=== PATIENT | male | born 1955 | race Caucasian/White ===

== ENCOUNTER 2020-04-03 03:10 | Emergency (ER) | payer BC, SELFPAY ==
--- NOTE | ~2020-04-03 | CT_ITS ---
EXAMINATION: CT abdomen pelvis w con EXAM DATE: 04/03/2020 04:32 INDICATION: Abdominal pain, flank pain. TECHNIQUE: Spiral CT of the abdomen and pelvis was performed following intravenous injection of 100 m L Omnipaque 350. Axial, coronal and sagittal images were reviewed. The dose-length product (DLP) fo r this examination was 940.26 mGy-cm. The exposure was tailored according to patient size (auto mA e xposure control), and iterative reconstruction (ASIR) was used as additional dose reduction technique . Comparison is made to prior examination from 05/12/2019. FINDINGS: The liver, spleen, adrenal glands and pancreas are unremarkable. Gallbladder is unremarkab le. No biliary obstruction. There are small renal cysts. There is mild to moderate bilateral hydrour eteronephrosis, with the bladder being severely distended, could be from bladder outlet obstruction o r neurogenic bladder. The prostate is enlarged measuring 5.4 x 5.3 cm, and bulging into the bladder b ase. There was mild hydronephrosis on the previous examination. There is a nonobstructing left calyce al 1.2 cm stone, and several punctate right calyceal stones. No ureteral stones or bladder stones. T here is no retroperitoneal or pelvic lymphadenopathy. There is mild scattered arteriosclerotic dise ase. Small umbilical fat-containing hernia. There is moderate descending and sigmoid colonic colonic diverticulosis. There is no adjacent inflam matory change to suggest diverticulitis. The appendix is normal. The stomach and small bowel are unr emarkable. There is expected amount of colonic stool. No free intraperitoneal gas. The heart is normal in size. There are no pericardial or pleural effusions. Scattered basilar postinfectious res idua and mediastinal granulomas. There are no osteoblastic or osteolytic lesions identified. IMPRESSION: 1. Mild to moderate bilateral hydroureteronephrosis and severely distended bladder could indicate bl adder outlet obstruction from BPH, or sequela from neurogenic bladder. Moderate prostatomegaly. 2. Bilateral nephrolithiasis. 3. Colonic diverticulosis. 4. Small umbilical hernia. Reviewed, dictated and finalized at location A. IMPRESSION: 1. Mild to moderate bilateral hydroureteronephrosis and severely distended nory dder could indicate bladder outlet obstruction from BPH, or sequela from neurog enic bladder. Moderate prostatomegaly. 2. Bilateral nephrolithiasis. 3. Colonic diverticulosis. 4. Small umbilical hernia.
[2020-04-03 03:13] VITALS: BP 187/114; PULSE 100; RESP 20; TEMP 36.9; O2SAT 97
--- NOTE | 2020-04-03 03:31 | ED.ABDPAIN ---
HPI - Abdominal Pain General Chief Complaint: Abdominal Pain Stated Complaint: FLANK PAIN Time Seen by Provider: 04/03/20 03:13 Source: RN notes reviewed History of Present Illness HPI narrative: Patient presents emergency department from home for flank pain. Patient states symptoms began approximately 8 PM today. The pain is located in the right lower abdomen and radiates in the right flank described as sharp and stabbing. States he took Excedrin at home with no relief. Denies any fevers or chills chest pain, shortness of breath nausea vomiting diarrhea or any other symptoms of concern Related Data Allergies Allergy/AdvReac Type Severity Reaction Status Date / Time No Known Allergies Allergy Verified 04/03/20 03:16 Review of Systems Review of Systems: Narrative: Gen.: Denies fevers or chills Eyes: Denies eye pain or visual change ENT: Denies congestion Respiratory: Denies shortness of breath or cough CV: Denies chest pain or palpitations GI: See HPI denies burning, urgency, frequency or hematuria Musculoskeletal: Denies back pain or muscle pain Neuro: Denies numbness, tingling, weakness or focal weakness Skin: Denies rash Except as documented, all other systems reviewed and negative [facility] Past Medical History Medical History (Updated 04/03/20 @ 05:31 by Markus Hinton DO) GERD (gastroesophageal reflux disease) Kidney stone Family History Family History (Updated 04/29/14 @ 07:13 by DOCTOR UNKNOWN) Sibling Hypertension Mother Family history of Parkinson's disease Family history of dementia Social History Social History Smoking status: Never smoker Alcohol intake: never Exam Narrative: Exam Narrative: APPEARANCE: No acute distress, nontoxic, resting in bed HEENT: Normocephalic, atraumatic, OMM RESPIRATORY: No respiratory distress, clear to auscultation bilaterally with no rhonchi wheezing or rales CARDIOVASCULAR: RRR s murmur ABDOMINAL: Soft, nondistended, tender palpation right lower quadrant right upper quadrant, no tenderness left upper quadrant left lower quadrant, no rebound or guarding, right flank tenderness MUSCULOSKELETAl: Moves all extremities. No clubbing, cyanosis or edema. NEURO: Awake and alert. Following commands, speech normal, no focal deficits SKIN:: Warm, dry. Normal Color PSYCHIATRIC: Normal affect/mood Course Course Emergency Course: Following CT patient noted to have distended bladder. When discussed with patient. He states he was having only some minimal urination states he saw Dr. Solorio 2 years ago and had prostate biopsies but has not seen since that time that time a Tejada was placed and was clamped after initial thousand liters out. Patient with total of 1300 mL out abdominal pain resolved Called and discussed with Dr. Velazquez presentation work-up agrees with plan for discharge with [place] and follow-up as an outpatient Discussed with patient results of workup and diagnosis. Discussed need for follow-up with primary care, proper use of medication, and reasons to return to the emergency department. Patient understands and agrees to current treatment plan Vital Signs Vital signs: Vital Signs Temperature 98.4 F 04/03/20 03:13 Pulse Rate 100 04/03/20 03:13 Respiratory Rate 20 04/03/20 03:13 Blood Pressure 187/114 H 04/03/20 03:13 Pulse Oximetry 97 04/03/20 03:13 Temperature 98.4 F 04/03/20 03:13 Pulse Rate 100 04/03/20 03:13 Respiratory Rate 20 04/03/20 03:13 Blood Pressure 187/114 H 04/03/20 03:13 Pulse Oximetry 97 04/03/20 03:13 MDM - Abdominal Pain MDM Narrative Medical decision making narrative: Patient initially presented with symptoms consistent with kidney stone lower abdominal pain radiating to the flank had blood in urine. Initially given fluids morphine and CT obtained CT shows distended bladder Tejada placed with improvement of pain and pain occurring from nory
[2020-04-03] MEDS: ONDANSETRON INJ 4 MG/2 ML VIAL IV PUSH (03:34)
[2020-04-03] MEDS: MORPHINE SULFATE 4 MG/ML INJ IV PUSH (03:34)
[2020-04-03] MEDS: SODIUM CHLORIDE 0.9% IV 1,000 ML 999 ML IV CONT (03:34)
[2020-04-03 03:43] LABS: Basophils Absolute Auto 0.1 K/mm3 (0.0-0.1); Basophils Percent Auto 0.4 % (0.2-1.2); Eosinophils Absolute Auto 0.1 K/mm3 (0-0.3); Eosinophils Percent Auto 0.4 % (0-4.4); Hematocrit 48.5 % (42.0-52.0); Hemoglobin 16.6 g/dL (14.0-18.0); Immature Granulocyte Absolute 0.07 K/mm3 (0.00-0.031); Immature Granulocyte Percent A 0.5 % (0-0.5); Lymphocytes Absolute Auto 1.29 K/mm3 (0.9-3.2); Lymphocytes Percent Auto 9.2 % (18.3-44.2); Mean Corpuscular HGB Conc 34.2 g/dl (32-36); Mean Corpuscular Volume 93.4 fl (80-100); Mean Platelet Volume 9.1 fl (7.4-10.4); Monocytes Absolute Auto 1.1 K/mm3 (0.1-0.6); Monocytes Percent Auto 7.9 % (2.6-8.5); Neutrophils Absolute Auto 11.4 K/mm3 (1.3-6.7); Neutrophils Percent Auto 81.6 % (45.5-73.1); Platelet Count Result 266 k/mm3 (150-375); Red Blood Count 5.19 M/mm3 (4.6-6.20); Red Cell Distribution Width 13.3 % (11.5-14.5)
[2020-04-03 03:50] LABS: Add Urine Microscopic? YES; Appearance Urine Clear (Clear); Bilirubin Urine Negative (Negative); Blood Urine 2+ (Negative); Color Urine Straw (Yellow); Glucose Urine UA Negative (Negative); Ketones Urine Negative (Negative); Leukocyte Esterase Ur Negative LEU/UL (Negative); Mucus Urine Rare /lpf; Nitrate Urine Negative (Negative); Protein Urine Negative (Negative); RBC Urine 21-50 /hpf (0-2); Specific Grav Ur 1.009 (1.001-1.035); Urobilinogen Urine Negative mg/dL (<2.0)
[2020-04-03 03:56] LABS: Alanine Aminotransferase 33 U/L (4-50); Albumin Level 4.7 g/dL (3.5-5.1); Alkaline Phosphatase 80 U/L (38-126); Anion Gap 14.8 mmol/L (7-16); Aspartate Amino Transferase 39 U/L (17-59); Bilirubin,Total 0.4 mg/dL (0.2-1.3); Blood Urea Nitrogen 19 mg/dL (9-20); Calcium 9.4 mg/dL (8.4-10.2); Carbon Dioxide 26 mmol/L (22-30); Chloride 102 mmol/L (98-107); Estimated CRCL calculation 50 ml/min; Estimated Glomerular Filt Rate 47; Glucose 126 mg/dL (75-110); Lipase 64 U/L (23-300); Potassium 4.8 mmol/L (3.4-5.0); Sodium 138 mmol/L (137-145)
--- NOTE | 2020-04-03 05:06 | PC.NURSE ---
pt reports relief of pain at this time
[2020-04-03] MEDS: TAMSULOSIN HCL 0.4 MG CAPSULE PO (05:08)
[2020-04-03 06:02] VITALS: BP 151/80; PULSE 84; RESP 16; O2SAT 94
== END 2020-04-03 06:04 | disposition home or self-care (01) ==
PROVIDERS: Emergency Provider Emergency Medicine; PCP Family Medicine
DX: R33.9 Retention of urine, unspecified (principal); N28.9 Disorder of kidney and ureter, unspecified; K21.9 Gastro-esophageal reflux disease without esophagitis; Z87.442 Personal history of urinary calculi; N20.0 Calculus of kidney; K57.90 Diverticulosis of intestine, part unspecified, without perforation or abscess without bleeding; K42.9 Umbilical hernia without obstruction or gangrene
CPT/HCPCS: 36415; 51702; 74177; 80053; 81001; 83690; 85025; 96361; 96374; 96375; 99284; A9270; J2270; J2405; J7030; Q9967

== ENCOUNTER → 2020-12-06 13:30 | Outpatient (REF) | payer BC, SELFPAY | LOC: ANHLAB 13:30 | PROVIDERS: PCP Family Medicine; Visit Provider Nurse Practitioner | DX: D18.01 Hemangioma of skin and subcutaneous tissue (principal) | CPT/HCPCS: 88305 ==

== ENCOUNTER → 2021-01-19 12:06 | Outpatient (REF) | payer BC, SELFPAY | LOC: ANHLAB 12:06 | PROVIDERS: PCP Family Medicine; Visit Provider Nurse Practitioner | DX: L98.0 Pyogenic granuloma (principal) | CPT/HCPCS: 88305 ==

== ENCOUNTER 2021-09-23 11:42 | Inpatient (IN) | payer MEDICARE, SELFPAY ==
[2021-09-23] VITALS (10 sets, daily range): BP systolic 92–160; BP diastolic 56–100; PULSE 71–90; RESP 12–18; TEMP 36.4–37; O2SAT 90–99; BMI 34.5
--- NOTE | ~2021-09-23 | XR_ITS ---
XR abdomen/kub 1V DATE: 09/23/2021 13:14 INDICATION: Left Ureteral calculus TECHNIQUE: AP projection, 2 views COMPARISON: 09/23/2021 CT abdomen pelvis FINDINGS: Approximately 10 x 16 mm calcified calculus overlies the proximal left ureter at the L4 lev el. Associated as are intact. There is left nephromegaly. There is no evidence of bowel obstruction. Ther e is a moderately prominent of fecal material in the rectum and colon. IMPRESSION: Approximately 10 x 16 mm calcified left ureteral calculus at L4 level Reviewed, dictated and finalized at [facility]. Reviewed, dictated and finalized at location A. SHIFTER IMPRESSION: Approximately 10 x 16 mm calcified left ureteral calculus at L4 lev el
--- NOTE | ~2021-09-23 | XR_ITS ---
EXAMINATION: XR retrograde pyelo w/stent LT INDICATION: Left flank pain TECHNIQUE: Four intraoperative fluoroscopic images are submitted for review. Total fluoroscopic time was 106.5 seconds. COMPARISON: KUB from today FINDINGS: Fluoroscopic images demonstrate placement of a left internal ureteral stent in expected pos ition. A stone is noted in the proximal ureter adjacent to the internal ureteral stent. IMPRESSION: 1. Left internal ureteral stent in expected position with stone adjacent to the stent in the proximal ureter. Please refer to procedure note for full details. Reviewed, dictated and finalized at location F. COOK
--- NOTE | ~2021-09-23 | CT_ITS ---
EXAMINATION: CT abdomen pelvis wo con DATE: 09/23/2021 12:56 INDICATION: Left-sided abdominal pain. Kidney stone. TECHNIQUE: Computed tomography (CT) of the abdomen and pelvis was performed without intravenous contr ast. Automated exposure control and iterative reconstruction technique were employed. Exam dose: 873 .00 mGy-cm total exam DLP. COMPARISON: None. FINDINGS: Several stable hepatic cysts since 04/03/2020. The gallbladder is present. No bile duct dilatation. Nor mal splenic size with occasional calcified splenic granulomas. No pancreatic mass lesion, calcificati on or pancreatic duct dilatation. Normal morphology of the adrenal glands. Right renal cysts measuring up to 2.5 cm, demonstrated to better advantage on 04/03/2020 examination wi th IV contrast material. 10 by 13 mm calculus with attenuation of 1007 Hounsfield units is noted at the proximal left ureter. There is prominent left hydronephrosis, mild perinephric stranding, nephromegaly. There is mild to moderate right hydronephrosis. No right urinary tract calculus is evident. There is prominent prostate enlargement, impressing the base of bladder, as well as prostate calcific ations. There is moderate diffuse bladder wall thickening. There are numerous diverticula of the sigmoid and descending colon and splenic flexure and some invol vement of the transverse colon; no CT evidence of diverticulitis. Normal appendix. No bowel obstruction, bowel wall thickening, pneumatosis or intraperitoneal free air. 2.3 x 2.5 cm fat-containing umbilical hernia. Small bilateral fat-containing inguinal hernias. No suspicious osteolytic or osteoblastic lesions are noted. IMPRESSION: 10 x 13 mm obstructing calculus at the proximal left ureter with prominent left hydroure teronephrosis, mild perinephric stranding, nephromegaly Right renal cysts Occasional hepatic cysts Diverticulosis of colon; no CT evidence of diverticulitis Reviewed, dictated and finalized at [facility]. Reviewed, dictated and finalized at location A. R IMPRESSION: 10 x 13 mm obstructing calculus at the proximal left ureter with p rominent left hydroureteronephrosis, mild perinephric stranding, nephromegaly Right renal cysts Occasional hepatic cysts Diverticulosis of colon; no CT evidence of diverticulitis
--- NOTE | 2021-09-23 12:15 | ED.MALEGU ---
HPI - Male Genitourinary General Chief complaint: Urogenital-Male Stated complaint: left flank pain Time Seen by Provider: 09/23/21 12:02 Source: RN notes reviewed History of Present Illness HPI Narrative: Patient presents emergency department from home for left flank pain. Patient symptoms been ongoing for the past 5 days pain is located left flank does not radiate described as aching in nature and comes in waves states pain does radiate to the left side of the abdomen he denies any fevers or chills chest pain shortness of breath nausea vomiting diarrhea or any other symptoms states he not taking medication at home for this. States he does have a history of kidney stones followed by Dr. Solorio Related Data Home Medications Medication Instructions Recorded Confirmed No Home Medications 09/23/21 09/23/21 Allergies Allergy/AdvReac Type Severity Reaction Status Date / Time No Known Allergies Allergy Verified 09/23/21 12:01 Review of Systems Review of Systems: Gen.: Denies fevers or chills ENT: Denies congestion Respiratory: Denies shortness of breath or cough CV: Denies chest pain or palpitations GI: See HPI denies nausea, emesis or diarrhea denies burning, urgency, frequency or hematuria Musculoskeletal: Denies back pain or muscle pain Neuro: Denies numbness, tingling, weakness or focal weakness Skin: Denies rash Except as documented, all other systems reviewed and negative [facility] Past Medical History Medical History (Updated 09/23/21 @ 15:38 by Markus Hinton DO) GERD (gastroesophageal reflux disease) Kidney stone Obesity Surgical History Surgical History Colonoscopy planned Dilation of esophagus 3 times Family History Family History Sibling Hypertension Mother Family history of Parkinson's disease Family history of dementia Father History of melanoma Social History Social History Smoking status: Never smoker Second hand tobacco smoke exposure: No Alcohol intake: current Drinks per week: 2 Alcohol use details: beer Substance use: never Substance use type: does not use Additional occupation/education comments: [employer] Gender identity (if verbalized by the patient): Male Spiritual care concerns: No Agree to blood products: Yes Exam Narrative: APPEARANCE: No acute distress, nontoxic, resting in bed EYES: EOMI HEENT: Normocephalic, atraumatic, OMM RESPIRATORY: No respiratory distress Clear to auscultation bilaterally with no rhonchi wheezing or rales. CARDIOVASCULAR: Regular rate and rhythm without murmurs rubs or gallops. ABDOMINAL: Soft, nontender, nondistended, no rebound or guarding left flank tenderness MUSCULOSKELETAl: Moves all extremities. No clubbing, cyanosis or edema. NEURO: Awake and alert. Following commands, speech normal, no focal deficits SKIN:: Warm, dry. No rashes lesions or abrasions PSYCHIATRIC: Normal affect/mood, Course Course Emergency Course: Reviewed patient's old records patient has been having symptoms of COVID since 09 September he has not been tested yet had talked with his PCP was exposed to COVID-positive will test Discussed with Dr. Taylor for urology request patient be n.p.o. for possible OR today agrees with plan for antibiotics Discussed with RODRICK Pedroza for Dr. Schulz presentation work-up agrees with admission Discussed with patient and family results of workup and diagnosis. Discussed need for admission. Patient and family understand and agree to current treatment plan Vital Signs Vital signs: Vital Signs Temperature 97.6 F 09/23/21 11:49 Pulse Rate 90 09/23/21 11:49 Respiratory Rate 16 09/23/21 11:49 Blood Pressure 128/98 H 09/23/21 11:49 Pulse Oximetry 99 09/23/21 11:49 Temperature 97.6 F 09/23/21 11:49 Pulse Rate 78
[2021-09-23] MEDS: KETOROLAC 30 MG/ML VIAL (*BKC) IV PUSH (12:18)
[2021-09-23] MEDS: SODIUM CHLORIDE 0.9% IV 1,000 ML 999 ML IV CONT (12:18)
[2021-09-23 12:21] LABS: Basophils Percent Auto 0.1 % (0.2-1.2); Eosinophils Absolute Auto 0.1 K/mm3 (0-0.3); Hematocrit 43.4 % (42.0-52.0); Hemoglobin 14.7 g/dL (14.0-18.0); Immature Granulocyte Absolute 0.03 K/mm3 (0.00-0.031); Immature Granulocyte Percent A 0.4 % (0-0.5); Lymphocytes Absolute Auto 1.12 K/mm3 (0.9-3.2); Mean Corpuscular HGB Conc 33.9 g/dl (32-36); Mean Corpuscular Hemoglobin 31.8 pg (26-34); Mean Corpuscular Volume 93.9 fl (80-100); Mean Platelet Volume 8.5 fl (7.4-10.4); Monocytes Absolute Auto 0.6 K/mm3 (0.1-0.6); Monocytes Percent Auto 8.9 % (2.6-8.5); Neutrophils Absolute Auto 5.2 K/mm3 (1.3-6.7); Neutrophils Percent Auto 73.6 % (45.5-73.1); Platelet Count Result 242 k/mm3 (150-375); Red Blood Count 4.62 M/mm3 (4.6-6.20); Red Cell Distribution Width 13.2 % (11.5-14.5)
[2021-09-23 12:31] LABS: Add Urine Microscopic? YES; Appearance Urine Clear (Clear); Bilirubin Urine Negative (Negative); Blood Urine 2+ (Negative); Color Urine Yellow (Yellow); Glucose Urine UA Negative (Negative); Ketones Urine Negative (Negative); Leukocyte Esterase Ur Trace LEU/UL (Negative); Mucus Urine Rare /lpf; Nitrate Urine Negative (Negative); Protein Urine Negative (Negative); RBC Urine 21-50 /hpf (0-2); WBC Urine 21-30 /hpf
[2021-09-23 12:35] LABS: Alanine Aminotransferase 60 U/L (4-50); Albumin Level 3.8 g/dL (3.5-5.1); Alkaline Phosphatase 64 U/L (38-126); Anion Gap 6 mmol/L (8-16); Aspartate Amino Transferase 64 U/L (17-59); Bilirubin,Total 0.6 mg/dL (0.2-1.3); Blood Urea Nitrogen 23 mg/dL (9-20); Calcium 8.5 mg/dL (8.4-10.2); Carbon Dioxide 29 mmol/L (22-30); Chloride 104 mmol/L (98-107); Estimated CRCL calculation 42 ml/min; Estimated Glomerular Filt Rate 38; Glucose 127 mg/dL (65-110); Potassium 3.7 mmol/L (3.4-5.0); Sodium 139 mmol/L (137-145)
[2021-09-23 14:34] LABS: SARS-CoV-2 RNA PCR Positive
--- NOTE | 2021-09-23 14:45 | PM.IMHP ---
H&P: HPI History of Present Illness Date/Time: 09/23/21 14:45 Chief Complaint: Left flank pain. Narrative: This is a pleasant 66-year-old male with history of kidney stones and benign prostatic hyperplasia presented to the emergency department earlier today from home for evaluation of left flank pain. He has not felt well for about 10 days and initially developed symptoms of low-grade fever, nonproductive cough, headache, and nausea on 09/09/2021. His son tested positive for COVID the patient assumed he had the same. Given mild symptoms he did not seek treatment however this past Saturday he developed aching and stabbing pain in the left mid to low back and flank region. He spoke with his primary care provider on 09/18/2021 who ordered an x-ray however he thought that it was likely related to cough or may be even a strained muscle from work thus he has not yet had that done. These past several days he has had increasing pain which sounds to be colicky in nature and today is insisted that he come in for evaluation. CT of the abdomen and pelvis showed a 10 x 13 mm proximal left ureteral stone with prominent hydronephrosis and he is currently awaiting transport to OR for cystoscopy and stent placement. He denies fever, sore throat, chest pain, shortness of breath, vomiting, diarrhea, dysuria, and hematuria. He was not vaccinated against COVID. Review of Systems Review of Systems: Twelve systems were reviewed and are negative except for as per HPI. [facility] Past Medical History Medical History (Updated 09/23/21 @ 20:37 by Kasia De La Garza PA-C) Benign prostatic hyperplasia Chronic kidney disease, stage 3 Elevated PSA Followed by Dr. Solorio. Gastroesophageal reflux disease Kidney stone Surgical History Surgical History (Updated 09/23/21 @ 20:32 by Kasia De La Garza PA-C) History of esophageal dilatation x3 History of prostate biopsy Benign pathology. Family History Family History Sibling Hypertension Mother Family history of Parkinson's disease Family history of dementia Father History of melanoma Social History Social History (Updated 09/23/21 @ 20:33 by Kasia De La Garza PA-C) Social History: Surrogate decision maker: Melody Chandra, spouse. Code status: Full code. Smoking status: Never smoker Second hand tobacco smoke exposure: No Alcohol intake: current Drinks per week: 2 Alcohol use details: beer Substance use: never Substance use type: does not use Additional living arrangements comments: The patient lives in [place] with his . Additional occupation/education comments: [employer]. Meds Home Medications and Allergies Home Medications Medication Instructions Recorded Confirmed Type fluticasone propionate 50 mcg INTRANASAL DAILY 09/23/21 09/23/21 History tamsulosin 0.4 mg PO HS 09/23/21 09/23/21 History Allergies Allergy/AdvReac Type Severity Reaction Status Date / Time No Known Allergies Allergy Verified 09/23/21 12:01 Vital Signs Vital Signs - 24 hr 09/23/21 11:49 09/23/21 13:51 09/23/21 16:31 Temperature 97.6 F 97.7 F Pulse Rate 90 78 84 Respiratory Rate 16 18 12 Blood Pressure 128/98 H 144/100 H 92/56 L Pulse Oximetry 99 97 90 09/23/21 16:41 09/23/21 16:55 09/23/21 17:10 Temperature Pulse Rate 85 77 75 Respiratory Rate 16 16 16 Blood Pressure 102/63 112/69 138/86 Pulse Oximetry 92 94 93 09/23/21 17:25 09/23/21 17:40 Temperature Pulse Rate 71 72 Respiratory Rate 16 16 Blood Pressure 142/93 H 158/93 H Pulse Oximetry 96 95 Exam Narrative: General: Well-developed, nontoxic-appearing male sitting up in bed. Weight: 100 kg. BMI: 34.5. HEENT: PERRL, EOMI. Sclerae anicteric. Oral mucosa moist. Neck: Supple. Respiratory: Lungs are clear to auscultation bilaterally. Cardiovascular: Regular rate and rhythm with S1-S2. No murmur, rub, or gallop. Gastrointe
--- NOTE | 2021-09-23 14:46 | WPDANESEPP ---
Anes - Eval Pre Procedure Procedure: Operation Date: 09/23/21 15:30 Proposed Procedures p Cysto, RPG, Stone Ext, Stent Placement - Harinder Taylor MD Date/Time: 09/23/21 14:46 Surgeon: Balaji Preop Diagnosis: Left Ureteral Stone Pre Op Diagnosis: left flank pain Patient Data Age: 66 Gender: M Height: 1.7 m Weight: 100 kg Last Vital Signs Temp 97.6 F 09/23/21 11:49 Pulse 78 09/23/21 13:51 Resp 18 09/23/21 13:51 BP 144/100 H 09/23/21 13:51 Pulse Ox 97 09/23/21 13:51 Allergies Allergy/AdvReac Type Severity Reaction Status Date / Time No Known Allergies Allergy Verified 09/23/21 12:01 Home Medications Medication Instructions Recorded Confirmed Type No Home Medications 09/23/21 09/23/21 History Laboratory Tests 09/23/21 09/23/21 09/23/21 12:04 12:04 12:11 WBC 7.0 K/mm3 K/mm3 (4.5-10.0) RBC 4.62 M/mm3 M/mm3 (4.6-6.20) Hgb 14.7 g/dL g/dL (14.0-18.0) Hct 43.4 % % (42.0-52.0) MCV 93.9 fl fl (80-100) MCH 31.8 pg pg (26-34) MCHC 33.9 g/dl g/dl (32-36) RDW 13.2 % % (11.5-14.5) Plt Count 242 k/mm3 k/mm3 (150-375) MPV 8.5 fl fl (7.4-10.4) Immature Gran % (Auto) 0.4 % % (0-0.5) Neut % (Auto) 73.6 % H % (45.5-73.1) Lymph % (Auto) 16.0 % L % (18.3-44.2) Ware % (Auto) 8.9 % H % (2.6-8.5) Eos % (Auto) 1.0 % % (0-4.4) Baso % (Auto) 0.1 % L % (0.2-1.2) Lymph # (Auto) 1.12 K/mm3 K/mm3 (0.9-3.2) Ware # (Auto) 0.6 K/mm3 K/mm3 (0.1-0.6) Eos # (Auto) 0.1 K/mm3 K/mm3 (0-0.3) Baso # (Auto) 0.0 K/mm3 K/mm3 (0.0-0.1) Abs Immat Gran (auto) 0.03 K/mm3 K/mm3 (0.00-0.031) Absolute Neuts (auto) 5.2 K/mm3 K/mm3 (1.3-6.7) Absolute Nucleated RBC 0.0 K/mm3 K/mm3 (0.0-0.012) Nucleated RBC % 0.0 % % (0.0-0.2) Sodium 139 mmol/L mmol/L (137-145) Potassium 3.7 mmol/L mmol/L (3.4-5.0) Chloride 104 mmol/L mmol/L (98-107) Carbon Dioxide 29 mmol/L mmol/L (22-30) Anion Gap 6 mmol/L L mmol/L (8-16) BUN 23 mg/dL H mg/dL (9-20) Creatinine 1.80 mg/dL H mg/dL (0.7-1.3) Estim Creat Clear Calc 42 ml/min ml/min Estimated GFR 38 L (59 - ) Glucose 127 mg/dL H mg/dL (65-110) Calcium 8.5 mg/dL mg/dL (8.4-10.2) Total Bilirubin 0.6 mg/dL mg/dL (0.2-1.3) AST 64 U/L H U/L (17-59) ALT 60 U/L H U/L (4-50) Alkaline Phosphatase 64 U/L U/L (38-126) Total Protein 7.0 g/dL g/dL (6.3-8.2) Albumin 3.8 g/dL g/dL (3.5-5.1) Urine Color Yellow (Yellow) Urine Appearance Clear (Clear) Urine pH 6.0 (5.0-9.0) Ur Specific [place] 1.020 (1.001-1.035) Urine Protein Negative mg/dL mg/dL (Negative) Urine Glucose (UA) Negative mg/dL mg/dL (Negative) Urine Ketones Negative mg/dL mg/dL (Negative) Ur Blood (Man) 2+ H (Negative) Urine Nitrate Negative (Negative) Urine Bilirubin Negative (Negative) Urine Urobilinogen 2.0 mg/dL H mg/dL (<2.0) Leukocyte Esterase Rfl Trace VIVIANE/UL H VIVIANE/UL (Negative) Urine RBC 21-50 /hpf H /hpf (0-2) Urine WBC 21-30 /hpf H /hpf Urine Mucus Rare /lpf /lpf SARS-CoV-2 RNA (RT-PCR) 09/23/21 13:50 WBC RBC Hgb Hct MCV MCH MCHC RDW Plt Count MPV Immature Gran % (Auto) Neut % (Auto) Lymph % (Auto) Ware % (Auto) Eos % (Auto) Baso % (Auto) Lymph # (Auto) Ware # (Auto) Eos # (Auto) Baso # (Auto) Abs Immat Gran (auto) Absolute Neut
--- NOTE | 2021-09-23 15:00 | PC.NURSE ---
Patient and informed that patient is not able to have any visitors due to patient COVID pending test. not willing to leave room and educated on the protocols of the ED due to COVID.
--- NOTE | 2021-09-23 15:06 | WPDANESEPPF ---
Anes - Initial Pre Proc Eval Procedure: Operation Date: 09/23/21 15:30 Proposed Procedures p Cysto, RPG, Stone Ext, Stent Placement - Harinder Taylor MD Date/Time: 09/23/21 15:06 Pre Op Diagnosis: left flank pain Patient Data Age: 66 Gender: M Height: 1.7 m Weight: 100 kg Last Vital Signs Temp 36.4 C 09/23/21 11:49 Pulse 78 09/23/21 13:51 Resp 18 09/23/21 13:51 BP 144/100 H 09/23/21 13:51 Pulse Ox 97 09/23/21 13:51 Allergies Allergy/AdvReac Type Severity Reaction Status Date / Time No Known Allergies Allergy Verified 09/23/21 12:01 Home Medications Medication Instructions Recorded Confirmed Type No Home Medications 09/23/21 09/23/21 History Laboratory Tests 09/23/21 09/23/21 09/23/21 12:04 12:04 12:11 WBC 7.0 K/mm3 K/mm3 (4.5-10.0) RBC 4.62 M/mm3 M/mm3 (4.6-6.20) Hgb 14.7 g/dL g/dL (14.0-18.0) Hct 43.4 % % (42.0-52.0) MCV 93.9 fl fl (80-100) MCH 31.8 pg pg (26-34) MCHC 33.9 g/dl g/dl (32-36) RDW 13.2 % % (11.5-14.5) Plt Count 242 k/mm3 k/mm3 (150-375) MPV 8.5 fl fl (7.4-10.4) Immature Gran % (Auto) 0.4 % % (0-0.5) Neut % (Auto) 73.6 % H % (45.5-73.1) Lymph % (Auto) 16.0 % L % (18.3-44.2) Angelina % (Auto) 8.9 % H % (2.6-8.5) Eos % (Auto) 1.0 % % (0-4.4) Baso % (Auto) 0.1 % L % (0.2-1.2) Lymph # (Auto) 1.12 K/mm3 K/mm3 (0.9-3.2) Angelina # (Auto) 0.6 K/mm3 K/mm3 (0.1-0.6) Eos # (Auto) 0.1 K/mm3 K/mm3 (0-0.3) Baso # (Auto) 0.0 K/mm3 K/mm3 (0.0-0.1) Abs Immat Gran (auto) 0.03 K/mm3 K/mm3 (0.00-0.031) Absolute Neuts (auto) 5.2 K/mm3 K/mm3 (1.3-6.7) Absolute Nucleated RBC 0.0 K/mm3 K/mm3 (0.0-0.012) Nucleated RBC % 0.0 % % (0.0-0.2) Sodium 139 mmol/L mmol/L (137-145) Potassium 3.7 mmol/L mmol/L (3.4-5.0) Chloride 104 mmol/L mmol/L (98-107) Carbon Dioxide 29 mmol/L mmol/L (22-30) Anion Gap 6 mmol/L L mmol/L (8-16) BUN 23 mg/dL H mg/dL (9-20) Creatinine 1.80 mg/dL H mg/dL (0.7-1.3) Estim Creat Clear Calc 42 ml/min ml/min Estimated GFR 38 L (59 - ) Glucose 127 mg/dL H mg/dL (65-110) Calcium 8.5 mg/dL mg/dL (8.4-10.2) Total Bilirubin 0.6 mg/dL mg/dL (0.2-1.3) AST 64 U/L H U/L (17-59) ALT 60 U/L H U/L (4-50) Alkaline Phosphatase 64 U/L U/L (38-126) Total Protein 7.0 g/dL g/dL (6.3-8.2) Albumin 3.8 g/dL g/dL (3.5-5.1) Urine Color Yellow (Yellow) Urine Appearance Clear (Clear) Urine pH 6.0 (5.0-9.0) Ur Specific [place] 1.020 (1.001-1.035) Urine Protein Negative mg/dL mg/dL (Negative) Urine Glucose (UA) Negative mg/dL mg/dL (Negative) Urine Ketones Negative mg/dL mg/dL (Negative) Ur Blood (Man) 2+ H (Negative) Urine Nitrate Negative (Negative) Urine Bilirubin Negative (Negative) Urine Urobilinogen 2.0 mg/dL H mg/dL (<2.0) Leukocyte Esterase Rfl Trace VIVIANE/UL H VIVIANE/UL (Negative) Urine RBC 21-50 /hpf H /hpf (0-2) Urine WBC 21-30 /hpf H /hpf Urine Mucus Rare /lpf /lpf SARS-CoV-2 RNA (RT-PCR) 09/23/21 13:50 WBC RBC Hgb Hct MCV MCH MCHC RDW Plt Count MPV Immature Gran % (Auto) Neut % (Auto) Lymph % (Auto) Angelina % (Auto) Eos % (Auto) Baso % (Auto) Lymph # (Auto) [place]ina # (Auto) Eos # (Auto) Baso # (Auto) Abs Immat Gran (auto) Absolute Neuts (auto) Absolute Nucleated RBC Nucle
--- NOTE | 2021-09-23 15:20 | WPDHPUPDATE1 ---
History and Physical Update Update Date/Time: 09/23/21 15:20 History and Physical has been reviewed, including an updated exam of the patient. There are NO changes in the patient's condition. Risks, benefits, and alternatives have been discussed and questions answered. Patient agrees to proceed with procedure.
--- NOTE | 2021-09-23 15:20 | WPDURCON ---
Assessment and Plan Assessment and plan (1) COVID-19 determined by clinical diagnostic criteria: Code(s): U07.1 - COVID-19 Status: Acute Assessment and Plan: management per hospitalist (2) Ureteral stone: Code(s): N20.1 - Calculus of ureter Status: Acute Assessment and Plan: 10x13 mm obstructing stone plan for cysto RPG, stent placement -we discussed risk of PCN by IR if unable to place stent he understands the risks, benefits, alternatives, nature of procedure and possible complications -risks including but not limited to bleeding, infection, trauma to prostate or ureter/bladder, the irritative nature of stent were reviewed, need for future stone treatment, anesthesia and positioning risks of ID, stroke , DVT, PE disability ( prolonged MV given covid + Status) -he and family verbalized understanding, all ? answered -he will f/u with Dr Solorio for ESWL after UTI treated (3) UTI (urinary tract infection): Code(s): N39.0 - Urinary tract infection, site not specified Status: Acute Assessment and Plan: on rocephin -continue abx, await cultures (4) Hydronephrosis: Code(s): N13.30 - Unspecified hydronephrosis Status: Acute Assessment and Plan: likely due to stone Urology Consult Note HPI Date Seen: 09/23/21 Primary Care Provider: Raven Ballesteros, DO Consult Narrative Narrative: Grzegorz Chandra is a 66 year old male with hx of BPH, GERD ( pt of Dr Solorio), with a known hx of renal stone , who presented to ER with a 4-5 day history of progressive left sided colicky pain. He was doing well yesterday and this am, and had a strong episode of colicky pain. he denies hematuria, dysuria, fevers/chills. + Nausea, denies vomiting. No prior hx of stones. He was waiting to treat stone until after harvest. Pain was waxing and waning, now controlled with IV morphine. + for covid, asymptomatic. he thought his symptoms were due to rojas dust exposure Review of Systems Constitutional: Constitutional: Reports as per HPI, Denies body ache(s) and Denies chills Eyes: Eyes: Reports as per HPI ENT: Reports as per HPI Cardiovascular: Cardiovascular: Denies dyspnea and Denies orthopnea Respiratory: Respiratory: Denies pain on inspiration and Denies dyspnea on exertion Gastrointestinal: Gastrointestinal: Reports abdominal pain and Denies fecal incontinence Genitourinary: Genitourinary: Reports no additional male genitourinary complaints, Reports as per HPI, Denies hematuria, Denies dysuria and Denies testicular pain Musculoskeletal: Musculoskeletal: Reports as per HPI and Reports back pain Integumentary/Breasts: Skin/Breast: Reports system reviewed and no additional complaints, except as docu Neurologic: Reports as per HPI, Reports Normal hearing present and Denies Neuro-related abnormal movements Psychiatric: Psychiatric: Reports no additional psychiatric complaints Endocrine: Endocrine: Reports no additional endocrine complaints Hematologic/Lymphatic: Hematologic/Lymphatic: Reports no additional hematologic/lymphatic complaints Allergic/Immunologic: Allergic/Immunologic: Reports no additional allergic/immunologic complaints [facility] Past Medical History Medical History (Updated 09/23/21 @ 15:28 by Harinder Taylor MD) GERD (gastroesophageal reflux disease) Kidney stone Obesity Surgical History Surgical History Colonoscopy planned Dilation of esophagus 3 times Family History Family History Sibling Hypertension Mother Family history of Parkinson's disease Family history of dementia Father History of melanoma Social History Social History Smoking status: Never smoker Second hand tobacco smoke exposure: No Alcohol intake: current Drinks per week: 2
[2021-09-23] MEDS: LIDOCAINE HCL 2% GEL UROJET 10 ML PKG MUCOUS MEM (16:02)
--- NOTE | 2021-09-23 16:18 | P.OP_ITS ---
Procedure Note - Detailed Date of Procedure 09/23/21 Pre-op Diagnosis left flank pain, left ureter stone Post-op Diagnosis same Procedure Performed cystoscopy, left retrograde pyelogram, left ureter stent placement Surgeon Harinder Taylor MD Anesthesia general Indications large left ureter stone with hydro, UTI Findings trilobar BPH, large impacted proximal ureter stone Description of Procedure Pateint was brought back to the operating room and given general anesthesia via ET tube. He received IV antibiotics preoperatively in the ER with rocephin. He was prepped and draped in standard sterile fashion with Betadine to the genitalia. Care was taken to not hyper flex or hyperextend any extremity. All bony prominences were thoroughly padded. After appropriate time-out and radiological films were displayed, a 22 Fr cystoscope was inserted into the urethra. the urethra was normal, prostatic urethra had significant tri-lobar hyperplasia with prominent prostatic varices at the bladder neck. Endoscopy was performed in systematic fashion, he had moderate trabeculation and some small cellules. No tumor masses or stones were seen in his bladder. Given his anatomy and intravesical prostatic protrusion into the bladder, the ureteral orifices were unable to be visualized. Stone was easily seen on brand development manager fluoroscopy. I removed the rigid cystoscope and replaced it with a 16 Fr flexible scope, I was able to identify the left ureteral orifice and navigate an open ended catheter and angle wire into this. he had significant J hooking of his ureter. i exchanged The angle glide for a Bentson wire. I was able to navigate this past the stone into the upper pole of the kidney. The 5 Fr open ended catheter would not pass the stone. Retrograde pyelogram was performed gently to assess collecting system. He had moderate hydronephrosis to the level of the stone. I removed the open ended catheter and back loaded the rigid scope over the wire. I was able to place a 4.8 Fr variable length stent, good curl was seen fluoroscopically in the kidney and both fluoroscopically and endoscopically in the bladder. All instruments and wires were removed, bladder was drained and patient was taken recovery in stable condition. I called the family, no one answered. He will be admitted to the hospitalist service postoperatively for monitoring. 22 modifier as his large prostate anatomy and large impacted stone added an additional 30 minutes to the procedure Implants left 4.8 variable length stent Drains No Packing No Pathology none sent Complications No immediate complications Condition stable Disposition PACU
[2021-09-23] MEDS: LACTATED RINGERS 1,000 ML 30 ML IV CONT (16:33)
--- NOTE | 2021-09-23 18:13 | ADMGEN ---
This patient, Grzegorz Chandra, was admitted to [facility] Surg Room 315-02 at 1750. Patient/family oriented to hospital policies and general routines including ID bracelet, bed and alarms, visiting hours, pain management, procedures, bathroom and other care routines, personal items, smoking policy, room service/diet, and visiting hours. Information on how to activate the Rapid Response Team has been discussed. Patient/Family are encouraged to report perceived risks to care and to ask questions if they do not understand what they are told or what they should do.
[2021-09-23] MEDS: SODIUM CHLORIDE 0.9% IV 1,000 ML 125 ML IV CONT ×2 (18:22→22:03)
[2021-09-23] MEDS: TAMSULOSIN HCL 0.4 MG CAPSULE PO (22:03)
[2021-09-24 01:54] VITALS: O2SAT 95
[2021-09-24 03:50] VITALS: BP 162/93; PULSE 75; RESP 18; TEMP 36.6; O2SAT 97
[2021-09-24] MEDS: SODIUM CHLORIDE 0.9% IV 1,000 ML 125 ML IV CONT (05:30)
[2021-09-24 08:00] VITALS: BP 153/93; PULSE 71; RESP 16; TEMP 36.6; O2SAT 97
[2021-09-24 08:04] LABS: Basophils Percent Auto 0.2 % (0.2-1.2); Eosinophils Percent Auto 0.2 % (0-4.4); Hematocrit 41.9 % (42.0-52.0); Immature Granulocyte Absolute 0.03 K/mm3 (0.00-0.031); Immature Granulocyte Percent A 0.5 % (0-0.5); Lymphocytes Absolute Auto 0.93 K/mm3 (0.9-3.2); Mean Corpuscular HGB Conc 33.4 g/dl (32-36); Mean Corpuscular Volume 95.9 fl (80-100); Mean Platelet Volume 8.8 fl (7.4-10.4); Monocytes Absolute Auto 0.7 K/mm3 (0.1-0.6); Monocytes Percent Auto 11.6 % (2.6-8.5); Neutrophils Absolute Auto 4.5 K/mm3 (1.3-6.7); Neutrophils Percent Auto 72.5 % (45.5-73.1); Platelet Count Result 235 k/mm3 (150-375); Red Blood Count 4.37 M/mm3 (4.6-6.20); White Blood Count 6.2 K/mm3 (4.5-10.0)
[2021-09-24] MEDS: FLUTICASONE PROPIONATE 0.05% NA SPR 16 GM BTL (*BKC) 2 SPRAY NASAL (08:10)
[2021-09-24 08:49] LABS: Alanine Aminotransferase 68 U/L (4-50); Albumin Level 3.4 g/dL (3.5-5.1); Alkaline Phosphatase 55 U/L (38-126); Anion Gap 6 mmol/L (8-16); Aspartate Amino Transferase 64 U/L (17-59); Bilirubin,Total 0.6 mg/dL (0.2-1.3); Blood Urea Nitrogen 13 mg/dL (9-20); CRP 1.5 mg/dL (<1.0); Calcium 8.2 mg/dL (8.4-10.2); Carbon Dioxide 24 mmol/L (22-30); Chloride 108 mmol/L (98-107); Estimated CRCL calculation 78 ml/min; Estimated Glomerular Filt Rate > 60; Glucose 100 mg/dL (65-110); Lactate Dehydrogenase 753 U/L (313-618); Magnesium 2.2 mg/dL (1.6-2.3); Potassium 4.1 mmol/L (3.4-5.0); Sodium 138 mmol/L (137-145)
--- NOTE | 2021-09-24 10:55 | WPDUROPN2 ---
Progress Note: A&P Assessment and Plan (1) Abnormal urinalysis: Code(s): R82.90 - Unspecified abnormal findings in urine Status: Acute Assessment and Plan: await culture (2) Transaminitis: Code(s): R74.01 - Elevation of levels of liver transaminase levels Status: Acute (3) Hydroureteronephrosis: Code(s): N13.30 - Unspecified hydronephrosis Status: Acute (4) Calculus of proximal left ureter: Code(s): N20.1 - Calculus of ureter Status: Acute Assessment and Plan: POD#1 s/p stent placement culture pending -he will need definite stone management after discharge -He sees Dr Solorio -Given stone size may require multiple treatments IE (ESWL followed by [facility]) (5) Chronic kidney disease, stage 3: Code(s): N18.30 - Chronic kidney disease, stage 3 unspecified Status: Acute Assessment and Plan: Cr at baseline (6) Benign prostatic hyperplasia: Code(s): N40.0 - Benign prostatic hyperplasia without lower urinary tract symptoms Status: Acute Assessment and Plan: outpt management (7) Kidney stone on left side: Code(s): N20.0 - Calculus of kidney Status: Acute (8) Acute UTI: Code(s): N39.0 - Urinary tract infection, site not specified Status: Acute Assessment and Plan: await culture (9) Acute renal insufficiency: Code(s): N28.9 - Disorder of kidney and ureter, unspecified Status: Acute Assessment and Plan: liekly due to obstructive component , Cr normalized s/p stent placement (10) COVID-19: Code(s): U07.1 - COVID-19 Status: Acute Assessment and Plan: management per hospitalist -currently asymptomatic Subjective Subjective Date/Time Seen: 09/24/21 10:55 NAEO, doing well, no f/c/n/v. Mild stent related discomfort, slept well. Denies respiratory complaints, NO CP/SOB. Review of Systems Constitutional: Constitutional: Reports as per HPI Eyes: Eyes: Reports no additional eye complaints ENT: Reports as per HPI Cardiovascular: Cardiovascular: Denies chest pain and Denies dyspnea Respiratory: Respiratory: Reports no additional respiratory complaints Gastrointestinal: Gastrointestinal: Reports no additional gastrointestinal complaints Genitourinary: Genitourinary: Reports no additional male genitourinary complaints Musculoskeletal: Musculoskeletal: Reports no additional musculoskeletal complaints Integumentary/Breasts: Skin/Breast: Reports system reviewed and no additional complaints, except as docu Neurologic: Reports as per HPI Psychiatric: Psychiatric: Reports as per HPI Exam Const: General: cooperative, healthy appearing and comfortable HENMT: Head: normal to inspection Face and sinus: normal facial exam Eyes: Conjunctivae: conjunctivae normal Sclera: sclerae normal Resp: Effort & Inspection: normal respiratory effort, able to speak in complete sentences and not tachypneic GI: Inspection: normal to inspection Skin: General skin exam: normal color and no rashes or lesions noted Neuro: General: oriented to person, oriented to place, oriented to time and patient oriented x3 Extrem: General: normal to inspection Objective Data Vital Signs Vital Signs: Vital Signs - 24 hr 09/23/21 11:49 09/23/21 13:51 09/23/21 16:31 Temperature 36.4 C 36.5 C Pulse Rate 90 78 84 Respiratory Rate 16 18 12 Blood Pressure 128/98 H 144/100 H 92/56 L Pulse Oximetry 99 97 90 09/23/21 16:41 09/23/21 16:55 09/23/21 17:10 Temperature Pulse Rate 85 77 75 Respiratory Rate 16 16 16 Blood Pressure 102/63 112/69 138/86 Pulse Oximetry 92 94 93 09/23/21 17:25 09/23/21 17:40 09/23/21 20:05 Temperature 36.4 C L Pulse Rate 71 72 87 Respiratory Rate 16 16 16 Blood Pressure 142/93 H 158/93 H 160/88 H Pulse Oximetry 96 95 95 09/23/21 23:55 09/24/21 01:54 09/24/21 03:50 Temperature 37.0 C 36.6 C Pulse Rate 73 75 Respiratory
[2021-09-24 12:00] VITALS: BP 167/89; PULSE 81; RESP 16; TEMP 36.8; O2SAT 97
[2021-09-24] MEDS: PANTOPRAZOLE 40 MG TABLET PO (12:30)
[2021-09-24] MEDS: ACETAMINOPHEN 325 MG TABLET 650 MG PO (13:22)
--- NOTE | 2021-09-24 15:15 | PM.IMPN ---
Progress Note: A&P Assessment and Plan (1) Calculus of proximal left ureter: Code(s): N20.1 - Calculus of ureter Status: Acute Assessment and Plan: 10 x 13 mm proximal ureteral stone noted on imaging with prominent hydroureteronephrosis. He underwent cystoscopy with left retrograde pyelogram and left ureteral stent placement on 09/23 Tolerated the procedure well and pain is well controlled Appreciate urology consultation He will need definitive stone management at a later date. Outpatient urology follow-up will be required Supportive care. Analgesics available as needed (2) Hydroureteronephrosis: Code(s): N13.30 - Unspecified hydronephrosis Status: Acute Assessment and Plan: Plan is as detailed above. (3) Chronic kidney disease, stage 3: Code(s): N18.30 - Chronic kidney disease, stage 3 unspecified Status: Acute Assessment and Plan: Baseline unknown. Last creatinine was 1.5 in April 2020 Creatinine elevated at 1.8 on presentation, likely secondary to obstructive uropathy Creatinine has normalized. 0.9 today (4) Transaminitis: Code(s): R74.01 - Elevation of levels of liver transaminase levels Status: Acute Assessment and Plan: AST and ALT are mildly elevated, possibly related to COVID-19. Remaining stable. Continue to monitor. (5) Abnormal urinalysis: Code(s): R82.90 - Unspecified abnormal findings in urine Status: Acute Assessment and Plan: Urinalysis was abnormal on presentation Urine culture pending He was started on IV ceftriaxone which will be continued while awaiting culture results (6) Benign prostatic hyperplasia: Code(s): N40.0 - Benign prostatic hyperplasia without lower urinary tract symptoms Status: Acute Assessment and Plan: Continue tamsulosin. (7) COVID-19: Code(s): U07.1 - COVID-19 Status: Acute Assessment and Plan: Symptoms began on 09/09/2021. Positive PCR this facility on 09/23 He is relatively asymptomatic at this point Maintaining adequate oxygen saturations on room air Not a candidate for dexamethasone or remdesivir Supportive care as needed Patient has not been vaccinated for COVID-19. Subjective Date/time seen: 09/24/21 15:15 Interval history: Date of service: 09/24/2021 Grzegorz Chandra is a 66 old male with a history of BPH, CKD, kidney stones, and GERD who is seen in follow-up for left ureteral stone. He underwent stent placement yesterday. He is feeling very well today and offers no complaints. Denies suprapubic pain, flank pain, back pain. No bladder spasms. Denies dysuria, hematuria. No urgency or frequency. Denies fever or chills. No nausea, vomiting, dizziness, lightheadedness. Appetite is good. Denies shortness of breath, cough, chest pain. Denies headache or body aches. He has no additional concerns at this time. He states that he is very poor just sitting here in the hospital and is very eager to go home. He is disappointed that his cannot visit him in the hospital. Review of Systems Review of Systems: All systems reviewed & are unremarkable except as noted in HPI and below Exam Narrative: Mr. Chandra is a well-nourished, well-appearing 66-year-old male who is sitting up in bed. He appears comfortable and is in NARD. Neuro: awake, alert and oriented x4, speech clear, no focal neuro deficits noted HEENMT: normocephalic, atraumatic, EOMI, sclerae anicteric Respiratory: clear to auscultation bilaterally, nonlabored breathing Cardio: regular rate, regular rhythm with S1-S2 Abdomen: nondistended, normoactive bowel sounds, soft, nontender to palpation : No CVA tenderness, left flank slightly tender to palpation Extremities: no edema, erythema, or tenderness to palpation Skin: no rashes or lesions, warm and dry Psych: appropriate mood and affect, judgment and insight intact Objec
[2021-09-24 16:00] VITALS: BP 145/87; PULSE 79; RESP 16; TEMP 36.6; O2SAT 96
[2021-09-24 20:00] VITALS: BP 142/81; PULSE 81; RESP 18; TEMP 36.4; O2SAT 95
[2021-09-24] MEDS: TAMSULOSIN HCL 0.4 MG CAPSULE PO (20:24)
[2021-09-25] VITALS: BP 138/77; PULSE 78; RESP 18; TEMP 36.3; O2SAT 98
[2021-09-25] MEDS: ACETAMINOPHEN 325 MG TABLET 650 MG PO (01:47)
[2021-09-25 04:00] VITALS: BP 148/74; PULSE 74; RESP 18; TEMP 36.6; O2SAT 97
[2021-09-25 06:43] LABS: Hematocrit 41.8 % (42.0-52.0); Hemoglobin 14.3 g/dL (14.0-18.0); Mean Corpuscular HGB Conc 34.2 g/dl (32-36); Mean Corpuscular Hemoglobin 31.8 pg (26-34); Mean Corpuscular Volume 93.1 fl (80-100); Mean Platelet Volume 8.8 fl (7.4-10.4); Platelet Count Result 288 k/mm3 (150-375); Red Blood Count 4.49 M/mm3 (4.6-6.20); Red Cell Distribution Width 13.1 % (11.5-14.5); White Blood Count 6.9 K/mm3 (4.5-10.0)
[2021-09-25 07:14] LABS: Alanine Aminotransferase 81 U/L (4-50); Albumin Level 3.6 g/dL (3.5-5.1); Alkaline Phosphatase 59 U/L (38-126); Aspartate Amino Transferase 67 U/L (17-59); Bilirubin,Total 0.6 mg/dL (0.2-1.3)
[2021-09-25 07:28] LABS: Anion Gap 7 mmol/L (8-16); Blood Urea Nitrogen 15 mg/dL (9-20); Calcium 8.5 mg/dL (8.4-10.2); Carbon Dioxide 26 mmol/L (22-30); Chloride 104 mmol/L (98-107); Estimated CRCL calculation 71 ml/min; Estimated Glomerular Filt Rate > 60; Glucose 98 mg/dL (65-110); Sodium 137 mmol/L (137-145)
[2021-09-25 08:00] VITALS: BP 157/102; PULSE 94; RESP 18; TEMP 36.6; O2SAT 98
[2021-09-25] MEDS: PANTOPRAZOLE 40 MG TABLET PO (09:19)
--- NOTE | 2021-09-25 11:04 | P.DS_ITS ---
DS: Admitting Diagnosis Discharge Date 09/25/2021 Admitting Diagnosis Left ureteral stone DS: Discharge Diagnosis Discharge Diagnosis (1) Calculus of proximal left ureter: Code(s): N20.1 - Calculus of ureter Status: Acute Assessment and Plan: 10 x 13 mm proximal ureteral stone noted on imaging with prominent hydroureteronephrosis. * Seen in consultation by Urology * He underwent cystoscopy with left retrograde pyelogram and left ureteral stent placement on 09/23 * Tolerated the procedure well and pain remained well controlled * He will need definitive stone management at a later date. Outpatient urology follow-up will be required * Supportive care provided (2) Hydroureteronephrosis: Code(s): N13.30 - Unspecified hydronephrosis Status: Acute Assessment and Plan: Plan is as detailed above. (3) Chronic kidney disease, stage 3: Code(s): N18.30 - Chronic kidney disease, stage 3 unspecified Status: Acute Assessment and Plan: Baseline unknown. Last creatinine was 1.5 in April 2020 * Creatinine elevated at 1.8 on presentation, likely secondary to obstructive uropathy * Creatinine normalized. 1.0 on discharge (4) Transaminitis: Code(s): R74.01 - Elevation of levels of liver transaminase levels Status: Acute Assessment and Plan: AST and ALT are mildly elevated, * Most likely related to COVID-19. * Outpatient follow-up (5) Abnormal urinalysis: Code(s): R82.90 - Unspecified abnormal findings in urine Status: Acute Assessment and Plan: Urinalysis was abnormal on presentation * Urine culture with no growth * Started on IV Rocephin while awaiting cultures. Discontinued after negative culture. No further treatment required (6) Benign prostatic hyperplasia: Code(s): N40.0 - Benign prostatic hyperplasia without lower urinary tract symptoms Status: Acute Assessment and Plan: Continue tamsulosin. (7) COVID-19: Code(s): U07.1 - COVID-19 Status: Acute Assessment and Plan: Symptoms began on 09/09/2021. Positive PCR at this facility on 09/23 * He remained asymptomatic . Reports his symptoms have improved drastically over the past week * Maintained adequate oxygen saturations on room air. He had no oxygen requirements * Not a candidate for dexamethasone or remdesivir given lack of O2 demand * Supportive care provided * Patient has not been vaccinated for COVID-19. (8) Elevated blood pressure reading: Code(s): R03.0 - Elevated blood-pressure reading, without diagnosis of hypertension Status: Acute Assessment and Plan: Blood pressure has been elevated in the 160s systolic. * Patient has no documented history of hypertension and is not on any antihypertensive agents. * May be elevated due to pain and/or anxiety related to hospitalization. * Discussed with the patient and he denies any history of hypertension or having elevated blood pressure readings. * Discussed monitoring his blood pressures at home and follow-up with PCP in 1-2 weeks for blood pressure check. DS: Summary Hospital Course Hospital Course: Date of admission: 09/23/2021 Date of discharge: 09/25/2021 Grzegorz Chandra is a 66 old male with a history of BPH, CKD, kidney stones, and GERD who presented to the emergency department on 09/23/2021 with complaints of left flank pain ongoing for 5 days. On presentation to the emergency department, his vital
--- NOTE | 2021-09-25 11:04 | PM.DS ---
DS: Admitting Diagnosis Discharge Date 09/25/2021 Admitting Diagnosis Left ureteral stone DS: Discharge Diagnosis Discharge Diagnosis (1) Calculus of proximal left ureter: Code(s): N20.1 - Calculus of ureter Status: Acute Assessment and Plan: 10 x 13 mm proximal ureteral stone noted on imaging with prominent hydroureteronephrosis. Seen in consultation by Urology He underwent cystoscopy with left retrograde pyelogram and left ureteral stent placement on 09/23 Tolerated the procedure well and pain remained well controlled He will need definitive stone management at a later date. Outpatient urology follow-up will be required Supportive care provided (2) Hydroureteronephrosis: Code(s): N13.30 - Unspecified hydronephrosis Status: Acute Assessment and Plan: Plan is as detailed above. (3) Chronic kidney disease, stage 3: Code(s): N18.30 - Chronic kidney disease, stage 3 unspecified Status: Acute Assessment and Plan: Baseline unknown. Last creatinine was 1.5 in April 2020 Creatinine elevated at 1.8 on presentation, likely secondary to obstructive uropathy Creatinine normalized. 1.0 on discharge (4) Transaminitis: Code(s): R74.01 - Elevation of levels of liver transaminase levels Status: Acute Assessment and Plan: AST and ALT are mildly elevated, Most likely related to COVID-19. Outpatient follow-up (5) Abnormal urinalysis: Code(s): R82.90 - Unspecified abnormal findings in urine Status: Acute Assessment and Plan: Urinalysis was abnormal on presentation Urine culture with no growth Started on IV Rocephin while awaiting cultures. Discontinued after negative culture. No further treatment required (6) Benign prostatic hyperplasia: Code(s): N40.0 - Benign prostatic hyperplasia without lower urinary tract symptoms Status: Acute Assessment and Plan: Continue tamsulosin. (7) COVID-19: Code(s): U07.1 - COVID-19 Status: Acute Assessment and Plan: Symptoms began on 09/09/2021. Positive PCR at this facility on 09/23 He remained asymptomatic . Reports his symptoms have improved drastically over the past week Maintained adequate oxygen saturations on room air. He had no oxygen requirements Not a candidate for dexamethasone or remdesivir given lack of O2 demand Supportive care provided Patient has not been vaccinated for COVID-19. (8) Elevated blood pressure reading: Code(s): R03.0 - Elevated blood-pressure reading, without diagnosis of hypertension Status: Acute Assessment and Plan: Blood pressure has been elevated in the 160s systolic. Patient has no documented history of hypertension and is not on any antihypertensive agents. May be elevated due to pain and/or anxiety related to hospitalization. Discussed with the patient and he denies any history of hypertension or having elevated blood pressure readings. Discussed monitoring his blood pressures at home and follow-up with PCP in 1-2 weeks for blood pressure check. DS: Summary Hospital Course Hospital Course: Date of admission: 09/23/2021 Date of discharge: 09/25/2021 Grzegorz Chandra is a 66 old male with a history of BPH, CKD, kidney stones, and GERD who presented to the emergency department on 09/23/2021 with complaints of left flank pain ongoing for 5 days. On presentation to the emergency department, his vital signs are stable, he was afebrile, CBC unremarkable, BUN and creatinine elevated, additional electrolytes stable, urinalysis abnormal, CT abdomen/pelvis showed 10 x 13 mm obstructing left ureteral calculus with prominent left hydroureteronephrosis. He was admitted to the hospitalist service for further evaluation and management was seen in consultation by Urology. Please see above for further details. He underwent stent placement and will follow-up as an outpatient
[2021-09-25 11:17] VITALS: BP 154/96
--- NOTE | 2021-09-25 15:52 | WPDUROPN2 ---
Progress Note: A&P Assessment and Plan (1) Hydroureteronephrosis: Code(s): N13.30 - Unspecified hydronephrosis Status: Acute (2) Calculus of proximal left ureter: Code(s): N20.1 - Calculus of ureter Status: Acute Assessment and Plan: Stone visible on KUB, will plan to schedule a lithotripsy in 1-2 weeks, once he is COVID negative. Urine culture is negative, ok to discharge home. Will call patient to schedule his lithotripsy as an outpatient. No further evaluation needed. (3) Abnormal urinalysis: Code(s): R82.90 - Unspecified abnormal findings in urine Status: Acute Subjective Subjective Date/Time Seen: 09/25/21 15:52 POD #2 cysto left stent placemen, left retrograde pyelogram Patient doing very well, tolerating stent, no nausea and vomiting post operatively. His urine culture is negative and he wishes to go home. Review of Systems Cardiovascular: Cardiovascular: Denies chest pain Respiratory: Respiratory: Reports no additional respiratory complaints Gastrointestinal: Gastrointestinal: Denies abdominal pain, Denies nausea and Denies vomiting Genitourinary: Genitourinary: Denies hematuria, Reports dysuria, Reports flank pain and Reports urinary frequency Exam Cardio: Rate: regular rate GI: GI Palp: Yes Soft to palpation and Yes Tenderness to palpation present (GI) (LLQ) : General: Yes no CVA tenderness Extrem: General: no edema Objective Data Vital Signs Vital Signs: Vital Signs - 24 hr 09/24/21 16:00 09/24/21 20:00 09/25/21 00:00 Temperature 97.9 F 97.6 F 97.4 F L Pulse Rate 79 81 78 Respiratory Rate 16 18 18 Blood Pressure 145/87 H 142/81 H 138/77 Pulse Oximetry 96 95 98 09/25/21 04:00 09/25/21 08:00 09/25/21 11:17 Temperature 97.9 F 97.9 F Pulse Rate 74 94 Respiratory Rate 18 18 Blood Pressure 148/74 H 157/102 H 154/96 H Pulse Oximetry 97 98 Intake/Output Intake/Output: Intake & Output 09/22/21 09/23/21 09/24/21 09/25/21 23:59 23:59 23:59 23:59 Intake Total 2350 3760 600 Balance 2350 3760 600 Meds/Results Radiology Results: ITS Impressions Abdomen/Pelvis CT 09/23/21 13:23 IMPRESSION: 10 x 13 mm obstructing calculus at the proximal left ureter with prominent left hydroureteronephrosis, mild perinephric stranding, nephromegaly Right renal cysts Occasional hepatic cysts Diverticulosis of colon; no CT evidence of diverticulitis Abdomen X-Ray 09/23/21 13:31 IMPRESSION: Approximately 10 x 16 mm calcified left ureteral calculus at L4 level Retrograde Pyelogram 09/23/21 21:58 IMPRESSION: 1. Left internal ureteral stent in expected position with stone adjacent to the stent in the proximal ureter. Please refer to procedure note for full details. Labs Labs: Laboratory Results - last 24 hr 09/25/21 09/25/21 09/25/21 06:10 06:10 06:10 WBC 6.9 RBC 4.49 L Hgb 14.3 Hct 41.8 L MCV 93.1 MCH 31.8 MCHC 34.2 RDW 13.1 Plt Count 288 MPV 8.8 Sodium 137 Potassium 4.0 Chloride 104 Carbon Dioxide 26 Anion Gap 7 L BUN 15 Creatinine 1.00 Estim Creat Clear Calc 71 Estimated GFR > 60 Glucose 98 Calcium 8.5 Total Bilirubin 0.6 Direct Bilirubin 0.0 AST 67 H ALT 81 H Alkaline Phosphatase 59 Total Protein 6.0 L Albumin 3.6 Quality VTE Prophylaxis VTE prophylaxis: mechanical ordered
== END 2021-09-25 12:35 | disposition home or self-care (01) | DRG 659 ==
LOC: ANHED 15:38 → ANH2MED 15:44 → ANH3MEDSUR 17:45
PROVIDERS: Emergency Medicine; Physician Assistant; Urology; Admitting Provider Family Medicine; Emergency Provider Emergency Medicine; PCP Family Medicine; Visit Provider Internal Medicine
PROC: 0T778DZ Dilation of Left Ureter with Intraluminal Device, Via Natural or Artificial Opening Endoscopic (ICD-10-PCS; CPT 52352; principal; 2021-09-23 15:30)
DX: N13.2 Hydronephrosis with renal and ureteral calculous obstruction (principal); U07.1 COVID-19; N18.30 Chronic kidney disease, stage 3 unspecified; R03.0 Elevated blood-pressure reading, without diagnosis of hypertension; N40.0 Benign prostatic hyperplasia without lower urinary tract symptoms; K21.9 Gastro-esophageal reflux disease without esophagitis; E66.9 Obesity, unspecified; Z68.32 Body mass index [BMI] 32.0-32.9, adult
CPT/HCPCS: 36415; 74018; 74176; 74420; 80048; 80053; 80076; 81001; 82728; 83615; 83735; 85025; 85027; 86140; 87086; 96361; 96365; 96375; 99285; A9270; C1758; C1769; C2617; C9803; G0378; J0330; J0696; J1885; J2250; J2370; J2704; J3010; J7030; J7120; Q9966; U0003; U0005

== ENCOUNTER 2021-09-29 14:24 | Outpatient (CLI) | payer MEDICARE, SELFPAY ==
[2021-09-29 16:07] LABS: INR 1.1; Partial Thromboplastin Time 30.3 SECONDS (22.3-36.8)
== END 2021-09-29 14:25 | disposition home or self-care (01) ==
PROVIDERS: Anesthesiology; PCP Family Medicine; Visit Provider Urology
DX: Z01.818 Encounter for other preprocedural examination (principal); N20.1 Calculus of ureter
CPT/HCPCS: 36415; 85610; 85730

== ENCOUNTER 2021-10-06 02:38 | Day surgery (SDC) | payer MEDICARE, SELFPAY ==
[2021-09-28 09:24] VITALS: BMI 32.0
--- NOTE | 2021-09-28 09:31 | PC.NURSE ---
Report to the Outpatient Waiting Room, entrance under the green pavilion located off [facility], at time ___0600____ on date ___10/06/21____. OR Time: . - You and your visitor will be asked a series of questions to screen for COVID 19 for your protection. - A mask is required within the hospital. - NO visitors are allowed at this time. Patient visitors will be guided where to wait when not with patient. Preoperative COVID Testing Requirements: No COVID Test needed if: (proof is required; if not received patient will have Rapid Test prior to entry) - Patient has received COVID Vaccine at least 14 days prior to procedure date or - Patient has positive COVID test result within last 90 days of surgery date. COVID Test needed if above criteria is not met If not COVID vaccinated a COVID test must be conducted within 72 hours of surgery and patient is asked to isolate self from time of testing until procedure. You will go to the [facility] for your COVID testing. The [facility] site is located at the corner of [address] [facility]. You will only be called if COVID results are positive and your surgeon may reschedule your elective surgery date. Patients may have clear liquids (water, carbonated beverages, clear teas, apple juice) until 3 hours prior to surgery with a maximum of 20 ounces. (0430 AM) - No food from midnight until time of surgery - Infants may have breast milk until 4 hours before surgery, infant formula 6 hours prior to surgery. - Children will be allowed to drink immediately following surgery. If applicable, please bring a bottle or sippy cup to assist with drinking. Juice, water, soda, and popsicles are readily available. For infants on formula, please bring formula the day of surgery. Pacifiers are allowed. Take the following medications with a SIP of water the morning of surgery: NONE Medications to discontinue per physician NONE Date to take last dose Please no make-up, nail yakut, hairspray, perfume, deodorant, or body powder the day of surgery. No jewelry (including any body piercings) or valuables the day of surgery, leave them at home. Please take a shower or bath the night before, or the morning of, surgery with an antibacterial soap. Wear comfortable, loose fitting clothing. Children are encouraged to wear pajamas. - Jewelry must be removed prior to entering the operating room. Rings and piercings that are not removed may be cut off. - The hospital will not accept responsibility for valuables. - Please leave all valuables, including medications, at home the day of surgery. If you are going home after surgery, a licensed tractor driver must drive you home. - NO public transportation without another adult. - We recommend that an adult stay with you for 24 hours following discharge. - We also recommend that you do not drive, make important decision, drink alcoholic beverages, or take any drugs that were not prescribed by your health care provider for at least 24 hours after your discharge time. For Pediatric surgeries, we recommend two adults accompany the child home (only one inside the building at this time). Follow any additional instructions given to you from your surgeon. Telephone instructions given to __PT and asked if any additional questions and then verbalized understanding. Patient advised to call surgeon office or pre surgery nurse liaison [phone] if any additional questions.
--- NOTE | 2021-10-05 15:12 | P.PNAN_ITS ---
Anes - Eval Pre Procedure Procedure: Operation Date: 10/06/21 10:30 Proposed Procedures p Left Extracorporeal Shock Wave Lithotripsy - Damon Christopher MD Date/Time: 10/05/21 15:12 Pre Op Diagnosis: left kidney stone Patient Data Age: 66 Gender: M Height: 1.73 m Weight: 95.45 kg Allergies Allergy/AdvReac Type Severity Reaction Status Date / Time No Known Allergies Allergy Verified 09/23/21 12:01 Home Medications Medication Instructions Recorded Confirmed Type fluticasone propionate 50 mcg INTRANASAL DAILY 09/23/21 09/28/21 History tamsulosin 0.4 mg PO HS 09/23/21 09/28/21 History Patient hx anesthesia problems: none Family hx anesthesia problems: none Results Review: All pre-operative results and documents have been reviewed as part of the pre-operative evaluation. [facility] Past Medical History Medical History Benign prostatic hyperplasia Chronic kidney disease, stage 3 Elevated PSA Followed by Dr. Solorio. Gastroesophageal reflux disease Kidney stone Surgical History Surgical History History of esophageal dilatation x3 History of prostate biopsy Benign pathology. Family History Family History Sibling Hypertension Mother Family history of Parkinson's disease Family history of dementia Father History of melanoma Social History Social History (Updated 09/23/21 @ 20:33 by Kasia De La Garza PA-C) Social History: Surrogate decision maker: Melody Chandra, spouse. Code status: Full code. Smoking status: Never smoker Second hand tobacco smoke exposure: No Alcohol intake: current Drinks per week: 2 Alcohol use details: beer Substance use: never Substance use type: does not use Additional living arrangements comments: The patient lives in [place] with his . Additional occupation/education comments: [employer]. Spiritual care concerns: No Exam Day of Procedure 10/05/21 15:12
[2021-10-06] VITALS (7 sets, daily range): BP systolic 114–174; BP diastolic 80–100; PULSE 71–89; RESP 16–23; TEMP 36.1–37.2; O2SAT 95–99
--- NOTE | ~2021-10-06 | XR_ITS ---
EXAMINATION: XR abdomen/kub 1V DATE: 10/06/2021 09:10 INDICATION: Left renal stone. TECHNIQUE: A supine view of the abdomen on 2 radiographs was obtained. COMPARISON: CT abdomen and pelvis 09/23/2021, abdomen radiographs 09/23/2021 FINDINGS: There are no dilated loops of bowel. There is a left internal ureteral stent in expected po sition. There is a 16 mm stone in proximal left ureter. There is a phlebolith in left pelvis. IMPRESSION: 1. 16 mm stone in proximal left ureter with left internal ureteral stent in expected position. Reviewed, dictated and finalized at location E. [employer] IMPRESSION: 1. 16 mm stone in proximal left ureter with left internal ureteral stent in exp ected position.
[2021-10-06] MEDS: LACTATED RINGERS 1,000 ML 30 ML IV CONT ×2 (09:50→12:15)
--- NOTE | 2021-10-06 09:54 | WPDANESEFPP ---
Anes - Eval Final PreProcedure Day of Procedure 10/06/21 09:54 Patient weight: overweight Heart: regular rate and rhythm Lungs: clear to auscultation Airway: Mallampati scale class II Neurological: alert and oriented Last oral intake: >/= 8 hours ASA classification: II Emergent: no Anesthetic plan: proceed Anesthesia type and monitoring: general LMA and standard monitoring Results Review: All pre-operative results and documents have been reviewed as part of the pre-operative evaluation. Informed Consent: The patient's anesthetic plan and its attendant risks and benefits were discussed with the patient/family/POA. Questions were solicited and answers provided to the satisfaction of the patient/family/POA.
--- NOTE | 2021-10-06 11:06 | WPDHPUPDATE1 ---
History and Physical Update Update Date/Time: 10/06/21 11:06 History and Physical has been reviewed, including an updated exam of the patient. There are NO changes in the patient's condition. Risks, benefits, and alternatives have been discussed and questions answered. Patient agrees to proceed with procedure. Proceed with lithotripsy of left ureteral calculus
[2021-10-06] MEDS: ceFAZolin 2 GM/D5W 50 ML 2 GM/50 ML BAG IVPB (11:18)
--- NOTE | 2021-10-06 12:08 | W.PM.PROC2 ---
Procedure Note - Detailed Date of Procedure 10/06/21 Pre-op Diagnosis left ureteral stone Post-op Diagnosis same Procedure Performed Lithotripsy of left ureteral calculus Surgeon Damon Christopher MD Anesthesia general Description of Procedure Patient is taken to the operative suite correctly identified. Once anesthesia was obtained the stone was localized in both planes. Three thousand shocks were given stone. Patient has fairly large stone. It is difficult to tell how much fragmentation actually occurred with edema around the stone. He is taken recovery stable condition. He will follow-up in 7-10 days with a KUB. Drains Yes Packing No Pathology none sent Complications No immediate complications Condition stable Disposition PACU
[2021-10-06] MEDS: oxyCODONE HCL (*CRX) 5 MG TAB IR PO (13:58)
== END 2021-10-06 14:35 | disposition home or self-care (01) ==
PROVIDERS: PCP Family Medicine; Visit Provider Urology
PROC: (CPT 50590; principal; 2021-10-06 10:30)
DX: N20.1 Calculus of ureter (principal); M18.30 Unilateral post-traumatic osteoarthritis of first carpometacarpal joint, unspecified hand; N40.0 Benign prostatic hyperplasia without lower urinary tract symptoms; K21.9 Gastro-esophageal reflux disease without esophagitis
CPT/HCPCS: 50590; 74018; A9270; J0690; J1100; J2405; J2704; J7120

== ENCOUNTER 2021-10-19 08:23 | Outpatient (CLI) | payer MEDICARE, SELFPAY ==
--- NOTE | ~2021-10-19 | XR_ITS ---
XR abdomen/kub 1V DATE: 10/19/2021 08:43 INDICATION: Bilateral kidney stones. Left lithotripsy 2 weeks ago. TECHNIQUE: AP projection, 2 views COMPARISON: October 06, 2021 KUB FINDINGS: Left internal urinary stent is unchanged in position since August 05, 2022. There appear to be at least 4 residual calcified stone fragments measuring up to approximately 3.4 mm maximal dimension remaining at the L3-4 level from the 1.6 cm stone at the L3 level on October 06. Additionally, there are multiple small stone fragments overlying the lower pole of the left kidn ey. No visceromegaly is evident. The psoas shadows are intact. There is no evidence of bowel obstruction. IMPRESSION: Steinstrasse of left ureter at L3-4 level and multiple small calcified stones overlying t he lower pole of left kidney; left internal urinary stent unchanged in position Reviewed, dictated and finalized at Location A. Reviewed, dictated and finalized at location B. [employer] IMPRESSION: Steinstrasse of left ureter at L3-4 level and multiple small calcif ied stones overlying the lower pole of left kidney; left internal urinary stent unchanged in position
== END 2021-10-19 08:24 | disposition home or self-care (01) ==
LOC: ANHIMG 08:27
PROVIDERS: PCP Family Medicine; Visit Provider Nurse Practitioner Adult Health
DX: N20.0 Calculus of kidney (principal); Z96.0 Presence of urogenital implants
CPT/HCPCS: 74018

== ENCOUNTER 2021-10-26 08:23 | Outpatient (CLI) | payer MEDICARE, SELFPAY ==
--- NOTE | ~2021-10-26 | XR_ITS ---
EXAMINATION: XR abdomen/kub 1V DATE: 10/26/2021 08:37 INDICATION: Left ureteral stone. TECHNIQUE: A supine view of the abdomen on 2 radiographs was obtained. COMPARISON: CT abdomen and pelvis 09/23/2021, abdomen radiographs 10/19/2021 FINDINGS: There are no dilated loops of bowel. There is a phlebolith in left pelvis. There is a left internal ureteral stent in expected position. There is a 4 mm stone in left kidney lower pole. There are 2 or 3 stones in proximal left ureter at L3-L4 with the largest measuring 4 x 3 mm. IMPRESSION: 1. 2 or 3 stones in proximal left ureter at L3-L4 with the largest measuring 4 x 3 mm. Left internal ureteral stent in expected position. 2. 4 mm stone in left kidney lower pole. Reviewed, dictated and finalized at location A. [employer]
== END 2021-10-26 08:24 | disposition home or self-care (01) ==
PROVIDERS: PCP Family Medicine; Visit Provider Urology
DX: N20.2 Calculus of kidney with calculus of ureter (principal)
CPT/HCPCS: 74018

== ENCOUNTER 2021-10-30 08:47 | Outpatient (CLI) | payer MEDICARE, SELFPAY ==
[2021-10-30 09:41] LABS: INR 1.1; Prothrombin Time 13.6 Seconds (11.1-14.7)
[2021-10-30 09:42] LABS: Partial Thromboplastin Time 28.6 SECONDS (22.3-36.8)
== END 2021-10-30 08:48 | disposition home or self-care (01) ==
LOC: ANHSURGERY 08:51
PROVIDERS: PCP Family Medicine; Visit Provider Urology
DX: Z20.818 Contact with and (suspected) exposure to other bacterial communicable diseases (principal); N20.1 Calculus of ureter
CPT/HCPCS: 36415; 85610; 85730; 87086

== ENCOUNTER 2021-11-03 02:50 | Day surgery (SDC) | payer MEDICARE, SELFPAY ==
[2021-10-27 11:25] VITALS: BMI 31.1
--- NOTE | 2021-10-27 11:35 | PC.NURSE ---
Report to the Outpatient Waiting Room, entrance under the green pavilion located off [facility], at time _0630_ on date _11/03/21_. OR Time: _0830_. - You and your visitor will be asked a series of questions to screen for COVID 19 for your protection. - A mask is required within the hospital. Preoperative COVID Testing Requirements: NONE Patients may have clear liquids (water, carbonated beverages, clear teas, apple juice) until 3 hours prior to surgery (0530 AM) with a maximum of 20 ounces. - No food from midnight until time of surgery Take the following medications with a SIP of water the morning of surgery: ____N/A Medications to discontinue per physician N/A Date to take last dose Please no make-up, nail divehi, hairspray, perfume, deodorant, or body powder the day of surgery. No jewelry (including any body piercings) or valuables the day of surgery, leave them at home. Please take a shower or bath the night before, or the morning of, surgery with an antibacterial soap. Wear comfortable, loose fitting clothing. - Jewelry must be removed prior to entering the operating room. Rings and piercings that are not removed may be cut off. - The hospital will not accept responsibility for valuables. - Please leave all valuables, including medications, at home the day of surgery. If you are going home after surgery, a licensed local company hazmat driver must drive you home. - NO public transportation without another adult. - We recommend that an adult stay with you for 24 hours following discharge. - We also recommend that you do not drive, make important decision, drink alcoholic beverages, or take any drugs that were not prescribed by your health care provider for at least 24 hours after your discharge time. One visitor will be allowed to accompany the patient into the hospital. Patients visitor will be instructed to remain with patient at all times or leave the building. We will allow the visitor to come back to the postoperative area when patient is ready. Follow any additional instructions given to you from your surgeon. Telephone instructions given to _PT'S SPOUSE - GAIL_and asked if any additional questions and then verbalized understanding. Patient advised to call surgeon office or pre surgery nurse liaison [phone] if any additional questions.
--- NOTE | 2021-11-02 13:21 | WPDANESEPPF ---
Anes - Initial Pre Proc Eval Procedure: Operation Date: 11/03/21 07:30 Proposed Procedures p Left Ureteral Extracorporeal Shock Wave Lithotripsy, - Damon Christopher MD s Possible Left Ureteroscopy, - Damon Christopher MD s Possible Holmium Laser Procedure - Damon Christopher MD <Mitchell Willard MD - Last Filed: 11/03/21 07:18> Date/Time: 11/02/21 13:21 <Mitchell Willard MD - Last Filed: 11/03/21 07:18> Surgeon: Damon Christopher MD <Mitchell Willard MD - Last Filed: 11/03/21 07:18> Pre Op Diagnosis: left ureteral stone <Mitchell Willard MD - Last Filed: 11/03/21 07:18> Patient Data Age: 66 Gender: M Height: 1.73 m Weight: 93 kg <Mitchell Willard MD - Last Filed: 11/03/21 07:18> Allergies Allergy/AdvReac Type Severity Reaction Status Date / Time No Known Allergies Allergy Verified 10/27/21 11:24 <Mitchell Willard MD - Last Filed: 11/03/21 07:18> Home Medications Medication Instructions Recorded Confirmed Type fluticasone propionate 50 mcg INTRANASAL DAILY 09/23/21 11/03/21 History tamsulosin 0.4 mg PO HS 09/23/21 11/03/21 History <Mitchell Willard MD - Last Filed: 11/03/21 07:18> Patient hx anesthesia problems: none <Mitchell Willard MD - Last Filed: 11/03/21 07:18> Family hx anesthesia problems: none <Mitchell Willard MD - Last Filed: 11/03/21 07:18> Results Review: All pre-operative results and documents have been reviewed as part of the pre-operative evaluation. <Mitchell Willard MD - Last Filed: 11/03/21 07:18> PMFSH Past Medical History Medical History: Medical History Benign prostatic hyperplasia Elevated PSA Followed by Dr. Solorio. Gastroesophageal reflux disease Kidney stone <Mitchell Willard MD - Last Filed: 11/03/21 07:18> Surgical History Surgical History: Surgical History History of esophageal dilatation x3 History of prostate biopsy Benign pathology. <Mitchell Willard MD - Last Filed: 11/03/21 07:18> Family History Family History: Family History Sibling Hypertension Mother Family history of Parkinson's disease Family history of dementia Father History of melanoma <Mitchell Willard MD - Last Filed: 11/03/21 07:18> Social History Social History: Social History Social History: Surrogate decision maker: Melody Chandra, spouse. Code status: Full code. Smoking status: Never smoker Second hand tobacco smoke exposure: No Alcohol intake: current Drinks per week: 2 Alcohol use details: beer Substance use: never Substance use type: does not use Living arrangements: with family Additional living arrangements comments: The patient lives in [place] with his . Additional occupation/education comments: [employer]. Spiritual care concerns: No <Mitchell Willard MD - Last Filed: 11/03/21 07:18> Anes - Eval Final PreProcedure Day of Procedure 11/02/21 13:21 <Mitchell Willard MD - Last Filed: 11/03/21 07:18> Patient weight: obese <Mitchell Willard MD - Last Filed: 11/03/21 07:18> obese <Harinder Miramontes MD - Last Filed: 11/03/21 06:57> Heart: regular rate and rhythm <Mitchell Willard MD - Last Filed: 11/03/21 07:18> regular rate and rhythm <Harinder Miramontes MD - Last Filed: 11/03/21 06:57> Lungs: clear to auscultation <Mitchell Willard MD - Last Filed: 11/03/21 07:18> clear to auscultation <Harinder Miramotnes MD - Last Filed: 11/03/21 06:57> Airway: Mallampati scale class II <Mitchell Willard MD - Last Filed: 11/03/21 07:18> Mallampati scale class II <Harinder Miramontes MD - Last Filed: 11/03/21 06:57> Neurological: alert and oriented <Mitchell Willard MD - Last [place]
[2021-11-03] VITALS (9 sets, daily range): BP systolic 100–182; BP diastolic 72–100; PULSE 70–79; RESP 13–18; TEMP 36.2–36.8; O2SAT 94–99
--- NOTE | ~2021-11-03 | XR_ITS ---
XR abdomen/kub 1V DATE: 11/03/2021 06:23 INDICATION: Lithotripsy TECHNIQUE: 2 AP views of the abdomen COMPARISON: October 26, 2021 KUB FINDINGS: No significant change in position of left internal urinary stent. There are are at least 2 persistent calcified calculi at the proximal left ureter at the L3-4 level, measuring up to 3-4 mm. There is a small persistent calcification overlying the lower pole of the lef t kidney. There is a prominent amount of fecal material within the colon but no evidence of bowel obstruction. The psoas shadows are intact. No visceromegaly is noted. IMPRESSION: No significant change since October 26, 2021; left internal urinary stent and persistent calcified calculi of proximal left ureter at L3-4 level Reviewed, dictated and finalized at [facility]. Reviewed, dictated and finalized at location A. OMER ACCOUNT EXECUTIVE IMPRESSION: No significant change since October 26, 2021; left internal urinar y stent and persistent calcified calculi of proximal left ureter at L3-4 level
[2021-11-03] MEDS: LACTATED RINGERS 1,000 ML 30 ML IV CONT (06:40)
--- NOTE | 2021-11-03 07:15 | WPDHPUPDATE1 ---
History and Physical Update Update Date/Time: 11/03/21 07:15 History and Physical has been reviewed, including an updated exam of the patient. There are NO changes in the patient's condition. Risks, benefits, and alternatives have been discussed and questions answered. Patient agrees to proceed with procedure. Proceed with left ureteral eswl
[2021-11-03] MEDS: ceFAZolin 2 GM/D5W 50 ML 2 GM/50 ML BAG IVPB (07:25)
--- NOTE | 2021-11-03 08:02 | W.PM.PROC2 ---
Procedure Note - Detailed Date of Procedure 11/03/21 Pre-op Diagnosis left ureteral stone Post-op Diagnosis Same Procedure Performed ESWL of left ureteral calculus Surgeon Damon Christopher MD Anesthesia General Description of Procedure Patient is taken to the operative suite and correctly identified. Once anesthesia was obtained the stone was localized in both planes. Three thousand shocks were given the stone. Patient tolerated procedure well without any complications was taken recovery room stable condition. A follow-up in about 10 days with a KUB. If there is no stones visible will plan on removal of stent Drains Yes Packing No Pathology None sent Complications No immediate complications Condition Stable Disposition PACU
--- NOTE | 2021-11-03 08:32 | SUR.PHASEI ---
Simple mask removed at 0830.
== END 2021-11-03 10:02 | disposition home or self-care (01) ==
PROVIDERS: PCP Family Medicine; Visit Provider Urology
PROC: (CPT 50590; principal; 2021-11-03 07:30)
DX: N20.1 Calculus of ureter (principal); N40.0 Benign prostatic hyperplasia without lower urinary tract symptoms; K21.9 Gastro-esophageal reflux disease without esophagitis; R97.20 Elevated prostate specific antigen [PSA]; E66.9 Obesity, unspecified; Z68.32 Body mass index [BMI] 32.0-32.9, adult
CPT/HCPCS: 50590; 74018; A9270; J0690; J1100; J2250; J2405; J2704; J3010; J7120

== ENCOUNTER 2021-11-13 11:38 | Outpatient (CLI) | payer MEDICARE, SELFPAY ==
--- NOTE | ~2021-11-13 | XR_ITS ---
XR abdomen/kub 1V 11/13/2021 11:59 Indication: Renal stone Procedure: KUB Comparison: Comparison to multiple prior studies sequentially, with oldest reviewed study dated 12/2021. Findings: There is a left internal ureteral stent, position unchanged. There is a left renal stone. T here is a probable proximal left ureteral stone at the L3-4 level. Bowel gas pattern is nonobstructiv e. No acute osseous abnormality. Impression: 1: Left nephrolithiasis. 2: Probable left ureterolithiasis. Reviewed, dictated and finalized at location B. Impression: 1: Left nephrolithiasis. 2: Probable left ureterolithiasis.
== END 2021-11-13 11:39 | disposition home or self-care (01) ==
PROVIDERS: PCP Family Medicine; Visit Provider Urology
DX: N20.1 Calculus of ureter (principal)
CPT/HCPCS: 74018

== ENCOUNTER 2022-05-22 00:47 | Day surgery (SDC) | payer MEDICARE, SELFPAY ==
[2022-05-10 15:03] VITALS: BMI 32.0
--- NOTE | 2022-05-10 15:12 | PC.NURSE ---
Report to the Outpatient Waiting Room, entrance under the green pavilion located off [facility], at time _0930_ on date _05/15/22_. OR Time: _1130_. Time changes happen often and if your time is changed the preop area will call you the afternoon before. - You and your visitor will be asked to self-screen and do not enter if you have any COVID symptoms. - Only one visitor and NO children visitors are allowed at this time. - The patient visitor is requested to leave or wait in car when not with patient due to restrictions. - A mask is required within the hospital. Patients may have clear liquids (water, carbonated beverages, clear teas, apple juice) until 3 hours prior to surgery (0830 AM) with a maximum of 20 ounces. - No food from midnight until time of surgery - Infants may have breast milk until 4 hours before surgery, infant formula 6 hours prior to surgery. - Children will be allowed to drink immediately following surgery. If applicable, please bring a bottle or sippy cup to assist with drinking. Juice, water, soda, and popsicles are readily available. For infants on formula, please bring formula the day of surgery. Pacifiers are allowed. Take the following medications with a SIP of water the morning of surgery: __NASAL SPRAY IF NEEDED__ Medications to discontinue per physician _STATES TO STOP MULTIVITAMIN [address] LEIJA'S INSTRUCTIONS_ Date to take last dose_05/11/22_ Please no make-up, nail kazakh, hairspray, perfume, deodorant, or body powder the day of surgery. No jewelry (including any body piercings) or valuables the day of surgery, leave them at home. Please take a shower or bath the night before, or the morning of, surgery with an antibacterial soap. Wear comfortable, loose fitting clothing. Children are encouraged to wear pajamas. - Jewelry must be removed prior to entering the operating room. Rings and piercings that are not removed may be cut off. - The hospital will not accept responsibility for valuables. - Please leave all valuables, including medications, at home the day of surgery. If you are going home after surgery, a licensed local company flatbed truck driver must drive you home. - NO public transportation without another adult. - We recommend that an adult stay with you for 24 hours following discharge. - We also recommend that you do not drive, make important decision, drink alcoholic beverages, or take any drugs that were not prescribed by your health care provider for at least 24 hours after your discharge time. For Pediatric surgeries, we recommend two adults accompany the child home (only one inside the building at this time). Follow any additional instructions given to you from your surgeon. If you or anyone in your household have experienced Covid symptoms in the past week, please notify your surgeon or the nurse liaison at the phone number below for possible testing. Telephone instructions given to _PT'S SPOUSE (CORINE)_and asked if any additional questions and then verbalized understanding. Patient advised to call surgeon office or pre surgery nurse liaison [phone] if any additional questions.
--- NOTE | 2022-05-16 08:51 | PC.NURSE ---
Report to the Outpatient Waiting Room, entrance under the green pavilion located off [facility], at time ___1200____ on date __05/22/22 . OR Time: 1400 (2 PM)___. Time changes happen often and if your time is changed the preop area will call you the afternoon before. - You and your visitor will be asked to self-screen and do not enter if you have any COVID symptoms. - Only one visitor and NO children visitors are allowed at this time. - The patient visitor is requested to leave or wait in car when not with patient due to restrictions. - A mask is required within the hospital. Patients may have clear liquids (water, carbonated beverages, clear teas, apple juice) until 3 hours prior to surgery with a maximum of 20 ounces. - No food from midnight until time of surgery - Infants may have breast milk until 4 hours before surgery, infant formula 6 hours prior to surgery. - Children will be allowed to drink immediately following surgery. If applicable, please bring a bottle or sippy cup to assist with drinking. Juice, water, soda, and popsicles are readily available. For infants on formula, please bring formula the day of surgery. Pacifiers are allowed. Take the following medications with a SIP of water the morning of surgery: _NASAL SPRAY IF NEEDED_ Medications to discontinue per DR. LEIJA PT STATES TO STOP MULTIVITAMIN 5 DAYS PRIOR TO SURGERY, Date to take last dose 05/16/22_ Please no make-up, nail grenadian, hairspray, perfume, deodorant, or body powder the day of surgery. No jewelry (including any body piercings) or valuables the day of surgery, leave them at home. Please take a shower or bath the night before, or the morning of, surgery with an antibacterial soap. Wear comfortable, loose fitting clothing. Children are encouraged to wear pajamas. - Jewelry must be removed prior to entering the operating room. Rings and piercings that are not removed may be cut off. - The hospital will not accept responsibility for valuables. - Please leave all valuables, including medications, at home the day of surgery. If you are going home after surgery, a licensed helper driver must drive you home. - NO public transportation without another adult. - We recommend that an adult stay with you for 24 hours following discharge. - We also recommend that you do not drive, make important decision, drink alcoholic beverages, or take any drugs that were not prescribed by your health care provider for at least 24 hours after your discharge time. For Pediatric surgeries, we recommend two adults accompany the child home (only one inside the building at this time). Follow any additional instructions given to you from your surgeon. If you or anyone in your household have experienced Covid symptoms in the past week, please notify your surgeon or the nurse liaison at the phone number below for possible testing. Telephone instructions given to ____PT and asked if any additional questions and then verbalized understanding. Patient advised to call surgeon office or pre surgery nurse liaison [phone] if any additional questions.
--- NOTE | 2022-05-21 12:34 | WPDANESEPPF ---
Anes - Initial Pre Proc Eval Procedure: Operation Date: 05/22/22 14:00 Proposed Procedures p Trans Rectal Ultrasound Guided Prostate Biopsy - Damon Christopher MD Date/Time: 05/21/22 12:34 Surgeon: Damon Christopher MD Pre Op Diagnosis: Abnormal PSA Patient Data Age: 66 Gender: M Height: 1.73 m Weight: 95.45 kg Allergies Allergy/AdvReac Type Severity Reaction Status Date / Time No Known Allergies Allergy Verified 10/27/21 11:24 Home Medications Medication Instructions Recorded Confirmed Type tamsulosin 0.4 mg capsule 0.4 mg PO HS 09/23/21 05/10/22 History fluticasone propionate 50 50 mcg intranasal DAILY #16 grams 04/19/22 05/10/22 Rx mcg/actuation nasal spray,suspension multivitamin 1 tablet PO DAILY 05/10/22 05/10/22 History Patient hx anesthesia problems: none Family hx anesthesia problems: none Results Review: All pre-operative results and documents have been reviewed as part of the pre-operative evaluation. [facility] Past Medical History Medical History Benign prostatic hyperplasia Elevated PSA Followed by Dr. Solorio. Gastroesophageal reflux disease Kidney stone Surgical History Surgical History History of esophageal dilatation x3 History of prostate biopsy Benign pathology. Family History Family History Sibling Hypertension Mother Family history of Parkinson's disease Family history of dementia Father History of melanoma Social History Social History Social History: Surrogate decision maker: Melody Chandra, spouse. Code status: Full code. Smoking status: Never smoker Second hand tobacco smoke exposure: No Alcohol intake: current Drinks per week: 2 Alcohol use details: beer Substance use: never Substance use type: does not use Living arrangements: with family Additional living arrangements comments: The patient lives in [place] with his . Additional occupation/education comments: [employer]. Spiritual care concerns: No Anes - Eval Final PreProcedure Day of Procedure 05/21/22 12:34 Patient weight: obese Heart: regular rate and rhythm Lungs: clear to auscultation Airway: Mallampati scale class II Neurological: alert and oriented Last oral intake: >/= 8 hours ASA classification: III Emergent: no Anesthetic plan: proceed Anesthesia type and monitoring: general GIVS and LMA and standard monitoring Results Review: All pre-operative results and documents have been reviewed as part of the pre-operative evaluation. Informed Consent: The patient's anesthetic plan and its attendant risks and benefits were discussed with the patient/family/POA. Questions were solicited and answers provided to the satisfaction of the patient/family/POA.
--- NOTE | 2022-05-22 13:28 | WPDHPUPDATE1 ---
History and Physical Update Update Date/Time: 05/22/22 13:28 History and Physical has been reviewed, including an updated exam of the patient. There are NO changes in the patient's condition. Risks, benefits, and alternatives have been discussed and questions answered. Patient agrees to proceed with procedure. Proceed with transrectal ultrasound prostate biopsy
[2022-05-22] MEDS: LACTATED RINGERS 1,000 ML 30 ML IV CONT (13:45)
[2022-05-22 13:53] VITALS: BP 101/48; PULSE 66; RESP 14; TEMP 36.6; O2SAT 100
[2022-05-22 13:56] LABS: Anion Gap 12 mmol/L (8-16); Blood Urea Nitrogen 20 mg/dL (9-20); Carbon Dioxide 27 mmol/L (22-30); Chloride 105 mmol/L (98-107); Estimated CRCL calculation 57 ml/min; Estimated Glomerular Filt Rate 55; Glucose 100 mg/dL (65-110); Potassium 4.9 mmol/L (3.4-5.0); Sodium 144 mmol/L (137-145)
[2022-05-22 14:49] LABS: INR 1.2; Partial Thromboplastin Time 30.8 SECONDS (22.3-36.8); Prothrombin Time 14.6 Seconds (11.1-14.7)
[2022-05-22] MEDS: ceFAZolin 2 GM/D5W 50 ML 2 GM/50 ML BAG IVPB (15:11)
[2022-05-22 15:28] VITALS: BP 90/50; PULSE 72; RESP 14; O2SAT 94
--- NOTE | 2022-05-22 15:30 | W.PM.PROC2 ---
Procedure Note - Detailed Date of Procedure 05/22/22 Pre-op Diagnosis Abnormal PSA Post-op Diagnosis Same Procedure Performed Transrectal ultrasound with prostate biopsy Surgeon Damon Christopher MD Anesthesia General Description of Procedure Patient is taken the operative suite correctly identified. Once anesthesia was obtained he was in the lateral decubitus position. Transrectal ultrasound probe was inserted into the rectum. Both planes were visualized. Volume was 65 cc. We then took 12 cores in the standard fashion. Patient tolerated procedure without any complications taken recovery stable condition. He is to call for path results in 1 week time. Estimated Blood Loss 0 Drains No Packing No Pathology Yes Complications No immediate complications Condition Stable Disposition PACU
[2022-05-22 15:55] VITALS: BP 98/70; PULSE 73; RESP 20
[2022-05-22 16:25] VITALS: BP 112/74; PULSE 71; RESP 20
[2022-05-22 16:45] VITALS: BP 110/70; PULSE 70; RESP 20
== END 2022-05-22 16:55 | disposition home or self-care (01) ==
PROVIDERS: Anesthesiology; PCP Family Medicine; Visit Provider Urology
PROC: (CPT 55700; principal; 2022-05-22 14:00)
DX: R97.20 Elevated prostate specific antigen [PSA] (principal); N40.0 Benign prostatic hyperplasia without lower urinary tract symptoms
CPT/HCPCS: 55700; 76942; 36415; 80048; 85610; 85730; 88342; G0416; J0690; J2250; J2704; J3010; J7120

== ENCOUNTER 2022-11-27 09:04 | Outpatient (CLI) | payer MEDICARE, SELFPAY ==
--- NOTE | 2022-11-27 09:10 | EST_ITS ---
Patient Info Name: Grzegorz Chandra Age: 67 years : 1955 Gender: Male Ht: 68 in Wt: 225 lbs BSA: 2.25 m2 HR: 69 bpm BP: 138 / 97 mmHg Heart Rhythm: Sinus Rhythm Technical Quality: Good Exam Date: 11/27/2022 9:22 AM Exam Location: [facility] Pulmonary Patient Status: Outpatient Admit Date: 11/27/2022 Staff Ordering Physician: Leticia Ricks PA-C Certified Hyperbaric Technician: Janie Rogers RDCS Attending Provider: Leticia Ricks PA-C Referring Physician: Millicent GOMEZ; Exam Type: CA stress echo Study Info Indications R07.9 - Chest pain, unspecified Treadmill exercise stress echocardiogram is performed. Summary 1. PVC noted on exercise stress ECG. 2. Non-diagnostic stress ECG due to baseline ST and T wave abnormalities with right bundle branch block. 3. Hypertensive blood pressure response with exercise. 4. Good functional capacity, achieving 12.1 METs of workload. 5. Normal left venticular systolic function with no regional wall motion abnormalities noted at rest. 6. Stress echocardiogram is normal. No evidence of ischemia with stress. Stress Echo Findings Left Ventricle Normal left venticular systolic function with no regional wall motion abnormalities noted at rest. Left ventricular systolic function is normal with an estimated ejection fraction of 65-70 % at rest. Overall global left ventricular systolic function Improved post stress. No regional wall motion abnormalities noted post stress. Normal augmentation of all wall segments without evidence of ischemia with stress. Ventricles Name Value Normal LV Fractional Shortening/Ejection Fraction 2D/MM Visually Estimated EF 65 % 52-72 Protocol: Nicho Stress ECG Details Stage: REST Duration (min): 3 min : 14 sec Speed (mph): 0.0 Grade (%): 0 HR (bpm): 78 SBP (mmHg): 138 DBP (mmHg): 97 METS: --- Stage: REST Duration (min): 8 min : 3 sec Speed (mph): 0.0 Grade (%): 0 HR (bpm): 72 SBP (mmHg): 138 DBP (mmHg): 97 METS: --- Stage: REST Duration (min): 16 min : 4 sec Speed (mph): 0.0 Grade (%): 0 HR (bpm): 74 SBP (mmHg): 138 DBP (mmHg): 97 METS: --- Stage: STAGE 1 Duration (min): 1 min : 0 sec Speed (mph): 1.7 Grade (%): 10 HR (bpm): 93 SBP (mmHg): 138 DBP (mmHg): 97 METS: --- Stage: STAGE 1 Duration (min): 2 min : 0 sec Speed (mph): 1.7 Grade (%): 10 HR (bpm): 96 SBP (mmHg): 138 DBP (mmHg): 97 METS: --- Stage: STAGE 1 Duration (min): 3 min : 0 sec Speed (mph): 1.7 Grade (%): 10 HR (bpm): 101 SBP (mmHg): 163 DBP (mmHg): 97 METS: --- Stage: STAGE 2 Duration (min): 1 min : 0 sec Speed (mph): 2.5 Grade (%): 12 HR (bpm): 106 SBP (mmHg): 163 DBP (mmHg): 97 METS: --- Stage: STAGE 2 Duration (min): 2 min
== END 2022-11-27 09:05 | disposition home or self-care (01) ==
LOC: ANHCARD 09:05
PROVIDERS: PCP Family Medicine; Visit Provider Physician Assistant Medical
DX: R06.02 Shortness of breath (principal)
CPT/HCPCS: 93351

== ENCOUNTER 2024-09-17 00:32 | Day surgery (SDC) | payer MEDICARE, SELFPAY ==
[2024-09-03 10:31] VITALS: BMI 33.5
[2024-09-17 10:22] VITALS: BP 146/93; PULSE 70; RESP 16; TEMP 36.5; O2SAT 99
[2024-09-17] MEDS: LACTATED RINGERS 1,000 ML 150 ML IV CONT (10:33)
--- NOTE | 2024-09-17 10:52 | P.HP_ITS ---
History of Present Illness History of Present Illness Consent: Risks, benefits, and alternatives have been discussed and questions answered. Patient agrees to proceed with procedure. Chief complaint: colon screening Narrative: Grzegorz Chandra is a 69 year old male here for screening colonoscopy Review of Systems Review of Systems: All systems reviewed & are unremarkable except as noted in HPI and below PMFSH Past Medical History Medical History (Updated 09/17/24 @ 10:52 by Goran Song MD) Colon cancer screening Diverticulosis Hyperlipidemia Hyperglycemia Prostatitis Nasal polyp, unspecified Leukocytosis, unspecified Abnormal carotid duplex scan Elevated PSA Followed by Dr. Solorio. Benign prostatic hyperplasia GERD (gastroesophageal reflux disease) Kidney stone Surgical History Surgical History (Updated 07/20/24 @ 09:57 by Leticia Ricks PA-C) History of lithotripsy History of prostate biopsy Benign pathology. History of esophageal dilatation x3 Family History Family History Sibling Hypertension Mother Family history of Parkinson's disease Family history of dementia Father History of melanoma Social History Social History Social History: Surrogate decision maker: Melody Chandra, spouse. Code status: Full code. Smoking status: Never smoker Second hand tobacco smoke exposure: No Alcohol intake: current Drinks per week: 2 Alcohol use details: beer Substance use: never Substance use type: does not use Lack of Transportation: No Lack of Food: Never True Current Housing: I Have Housing Concerned About Future Housing: No Difficulty Paying Gas/Electric Bills: No Difficulty Paying for Meds: No Currently Unemployed: No Education: High School Diploma/GED Difficulty w/ Childcare or Family Care: No Living arrangements: with family Additional living arrangements comments: The patient lives in [place] with his . Occupation/Education: occupation Additional occupation/education comments: [employer]. Gender identity (if verbalized by the patient): Male Sexual Orientation (if Verbalized by the Patient): Straight or Heterosexual Spiritual care concerns: No Meds Home Medications and Allergies Home Medications ?Medication ?Instructions ?Recorded ?Confirmed ?Type multivitamin 1 tablet PO DAILY 05/10/22 09/17/24 History tamsulosin 0.4 mg capsule 0.4 mg PO HS #90 caps 10/09/22 09/17/24 Rx finasteride 5 mg tablet 5 mg PO DAILY 07/20/24 09/17/24 History fluticasone propionate 50 50 mcg intranasal DAILY #16 grams 07/20/24 09/17/24 Rx mcg/actuation nasal spray,suspension omeprazole magnesium 20 mg 20 mg PO DAILY 07/20/24 09/17/24 History tablet,delayed release Allergies Allergy/AdvReac Type Severity Reaction Status Date / Time No Known Allergies Allergy Verified 09/17/24 10:21 Vital Signs Vital Signs - 24 hr 09/17/24 10:22 Temperature 97.7 F Pulse Rate 70 Respiratory Rate 16 Blood Pressure 146/93 H Pulse Oximetry 99 Oxygen Delivery Room Air Exam Const: General: comfortable and no acute distress HENMT: Face/Nose/Sinus: Normal nares present Eyes: General: appearance normal, both eyes and all related structures Neck: Neck: no JVD Resp: Auscultation: clear to auscultation bilaterally Cardio: Rate: regular rate Rhythm: regular rhythm GI: Inspection: non-distended GI Palp: Yes Soft to palpation Skin: General skin exam: normal color Neuro: General: gait normal Speech: normal speech Extrem: General: normal to inspection Psych: Mental Status: mental status grossly normal Assessment and Plan Assessment and plan (1) Colon cancer screening: Code(s): Z12.11 - Encounter for screening for malignant neoplasm of colon Status: Acute Assessment and Plan: colonoscopy
--- NOTE | 2024-09-17 10:52 | WPDANESEPPF ---
Anes - Initial Pre Proc Eval Procedure: Operation Date: 09/17/24 11:30 Proposed Procedures p Screening Colonoscopy - Goran Song MD Date/Time: 09/17/24 10:52 Surgeon: Goran Song MD Pre Op Diagnosis: colon screening Patient Data Age: 69 Gender: M Height: 1.73 m Weight: 98.4 kg Last Vital Signs Temp 36.5 C 09/17/24 10:22 Pulse 70 09/17/24 10:22 Resp 16 09/17/24 10:22 BP 146/93 H 09/17/24 10:22 Pulse Ox 99 09/17/24 10:22 O2 Del Method Room Air 09/17/24 10:22 Allergies Allergy/AdvReac Type Severity Reaction Status Date / Time No Known Allergies Allergy Verified 09/17/24 10:21 Home Medications ?Medication ?Instructions ?Recorded ?Confirmed ?Type multivitamin 1 tablet PO DAILY 05/10/22 09/17/24 History tamsulosin 0.4 mg capsule 0.4 mg PO HS #90 caps 10/09/22 09/17/24 Rx finasteride 5 mg tablet 5 mg PO DAILY 07/20/24 09/17/24 History fluticasone propionate 50 50 mcg intranasal DAILY #16 grams 07/20/24 09/17/24 Rx mcg/actuation nasal spray,suspension omeprazole magnesium 20 mg 20 mg PO DAILY 07/20/24 09/17/24 History tablet,delayed release Patient hx anesthesia problems: none Family hx anesthesia problems: none Results Review: All pre-operative results and documents have been reviewed as part of the pre-operative evaluation. [facility] Past Medical History Medical History Diverticulosis Hyperlipidemia Hyperglycemia Prostatitis Nasal polyp, unspecified Leukocytosis, unspecified Abnormal carotid duplex scan Elevated PSA Followed by Dr. Solorio. Benign prostatic hyperplasia GERD (gastroesophageal reflux disease) Kidney stone Surgical History Surgical History History of lithotripsy History of prostate biopsy Benign pathology. History of esophageal dilatation x3 Family History Family History Sibling Hypertension Mother Family history of Parkinson's disease Family history of dementia Father History of melanoma Social History Social History Social History: Surrogate decision maker: Melody Chandra, spouse. Code status: Full code. Smoking status: Never smoker Second hand tobacco smoke exposure: No Alcohol intake: current Drinks per week: 2 Alcohol use details: beer Substance use: never Substance use type: does not use Lack of Transportation: No Lack of Food: Never True Current Housing: I Have Housing Concerned About Future Housing: No Difficulty Paying Gas/Electric Bills: No Difficulty Paying for Meds: No Currently Unemployed: No Education: High School Diploma/GED Difficulty w/ Childcare or Family Care: No Living arrangements: with family Additional living arrangements comments: The patient lives in [place] with his . Occupation/Education: occupation Additional occupation/education comments: [employer]. Gender identity (if verbalized by the patient): Male Sexual Orientation (if Verbalized by the Patient): Straight or Heterosexual Spiritual care concerns: No Anes - Eval Final PreProcedure Day of Procedure 09/17/24 10:52 Patient weight: obese Heart: regular rate and rhythm Lungs: clear to auscultation Airway: Mallampati scale class II Neurological: alert and oriented Last oral intake: >/= 8 hours ASA classification: II Emergent: no Anesthetic plan: proceed Anesthesia type and monitoring: general GIVS and standard monitoring Results Review: All pre-operative results and documents have been reviewed as part of the pre-operative evaluation. Informed Consent: The patient's anesthetic plan and its attendant risks and benefits were discussed with the patient/family/POA. Questions were solicited and answers provided to the satisfaction of the patient/family/POA.
[2024-09-17 11:10] VITALS: BP 86/69; PULSE 73; RESP 18; O2SAT 93
[2024-09-17 11:20] VITALS: BP 104/72; PULSE 67; RESP 18; O2SAT 97
[2024-09-17 11:30] VITALS: BP 115/78; PULSE 67; RESP 18; O2SAT 94
== END 2024-09-17 11:45 | disposition home or self-care (01) ==
PROVIDERS: PCP Physician Assistant Medical; Visit Provider Internal Medicine Gastroenterology
PROC: 0DJD8ZZ Inspection of Lower Intestinal Tract, Via Natural or Artificial Opening Endoscopic (ICD-10-PCS; CPT 45378; principal; 2024-09-17 11:30)
DX: Z12.11 Encounter for screening for malignant neoplasm of colon (principal); D12.0 Benign neoplasm of cecum; D12.2 Benign neoplasm of ascending colon; D12.4 Benign neoplasm of descending colon; K57.30 Diverticulosis of large intestine without perforation or abscess without bleeding; K64.8 Other hemorrhoids; E66.9 Obesity, unspecified; Z68.33 Body mass index [BMI] 33.0-33.9, adult
CPT/HCPCS: 45385; 88305; J2003; J2704; J7120